=== PATIENT | female | born 1965 | race Caucasian/White ===

== ENCOUNTER → 2016-08-15 | Outpatient (CLI) | payer OTHER ==
[~2016-08-15] MED LIST: /ADVA50050 INH; /MOXI40TA PO; ADV500INH INH; ALBUPOW9 INH; ALBUTEROL; ATROVENT; ERYT250C11 PO; MUCI600T34 PO; NEBULIZER MACHINE; OMEP40CA2 PO; PRED20TA PO; PREDPOW10; SPIRIVA; XANA0.25 PO; [UNRECOGNIZED DRUG - OTHER]
--- NOTE | 2016-08-16 02:50 | REP ---
Clinical: History of COPD with acute exacerbation. Technique: PA and lateral. Comparison: 08/26/2014. Findings: Mediastinum and cardiac silhouette are normal. Lung child demonstrate chronic-appearing interstitial changes consistent with history. No acute consolidation, effusion, or pneumothorax identified. Skeletal structures intact. Impression: Chronic changes related to COPD. No obvious acute mediastinal or cardiopulmonary process identified. Signed by Malachi Rodriguez MD 08/16/2016 02:41 A
== END ==
LOC: M SMT 13:14
PROVIDERS: ATTEND Nurse Practitioner Adult Health
DX: J44.1 Chronic obstructive pulmonary disease with (acute) exacerbation (principal)

== ENCOUNTER → 2016-08-29 | Outpatient (CLI) | payer OTHER ==
[2016-08-29 15:24] LABS: BASO % 0.4 % (0.0-1.0); EOS # 0.1 K/mm3 (0.0-0.50); EOS % 0.6 % (0.0-3.0); LARGE UNSTAINED CELL # 0.2 K/mm3 (0.0-0.4); LARGE UNSTAINED CELL % 2.4 % (0.0-4.0); LYMPH # 2.1 K/mm3 (1.5-4.5); LYMPH % 20.5 % (24.0-44.0); MEAN CORPUSCULAR HEMOGLOBIN 32.2 pg (27.0-33.0); MEAN CORPUSCULAR HGB CONC 33.9 g/dl (32.0-36.5); MEAN CORPUSCULAR VOLUME 94.9 fl (80.0-96.0); MONO # 0.7 K/mm3 (0.0-0.8); MONO % 7.7 % (0.0-5.0); NEUTROPHILS # 6.3 K/mm3 (1.8-7.7); NEUTROPHILS % 68.4 % (36.0-66.0); PLATELET COUNT, AUTOMATED 256 k/mm3 (150-450); RED CELL DISTRIBUTION WIDTH 12.6 % (11.5-14.5); WHITE BLOOD COUNT 9.2 K/mm3 (4.0-10.0)
[2016-08-29 15:31] LABS: ALBUMIN 4.2 GM/DL (3.2-5.2); ALKALINE PHOSPHATASE 114 U/L (45-117); ALT/SGPT 180 U/L (12-78); ANION GAP 7 MEQ/L (8-16); AST/SGOT 90 U/L (15-37); BILIRUBIN,TOTAL 0.5 MG/DL (0.2-1.0); BLOOD UREA NITROGEN 10 MG/DL (7-18); CALCIUM LEVEL 9.5 MG/DL (8.5-10.1); CARBON DIOXIDE LEVEL 30 MEQ/L (21-32); CHLORIDE LEVEL 101 MEQ/L (98-107); CREATININE FOR GFR 0.91 MG/DL (0.55-1.02); GLOMERULAR FILTRATION RATE > 60.0 (>58); GLUCOSE, FASTING 112 MG/DL (70-105); POTASSIUM SERUM 4.8 MEQ/L (3.5-5.1); SODIUM LEVEL 138 MEQ/L (136-145); TOTAL PROTEIN 7.7 GM/DL (6.4-8.2)
== END ==
LOC: M LAB 14:39
PROVIDERS: ATTEND Physician Assistant
DX: I10 Essential (primary) hypertension (principal)

== ENCOUNTER → 2017-12-03 | Outpatient (CLI) | payer OTHER | LOC: M SMT 15:20 | DX: J44.9 Chronic obstructive pulmonary disease, unspecified (principal) ==

== ENCOUNTER 2018-09-14 21:11 | Inpatient (IN) | payer OTHER ==
[~2018-09-14] VITALS: Ht 154.9 cm; Wt 70.6 kg
[2018-09-14] MEDS ORDERED: ALBU83IN PO (21:45)
[2018-09-14] MEDS ORDERED: LEVO500T3 PO (21:45)
[2018-09-14] MEDS ORDERED: PRED10TA2 PO (21:45)
[2018-09-14] MEDS ORDERED: ALBUTEROL SULFATE 2.5 MG/0.5 ML INH NEB SOLN INH ONE (22:15)
[2018-09-14] MEDS ORDERED: IPRATROPIUM 0.5MG/ALBUTEROL 2.5MG INH SOL UD 3ML (DUONEB)(J7620) NEB ONE (22:15)
[2018-09-14] MEDS ORDERED: dexameTHASONE 20 MG/5 ML VIAL (J1100) IV ONE (22:15)
[2018-09-14 22:28] LABS: ABG BASE EXCESS -2.3 (-2.0-2.0); ABG HCO3 21.1 MEQ/L (22.0-26.0); ABG O2 SATURATION 98.4 % (95.0-99.0); ABG PARTIAL PRESSURE CO2 33.4 mmHg (35.0-45.0); ABG PARTIAL PRESSURE O2 117.6 mmHg (75.0-100.0); ABG STANDARD HCO3 22.6 MEQ/L (22.0-26.0); ABG TOTAL CO2 22.2 MEQ/L (22.0-29.0); ABG pH (ARTERIAL) 7.419 UNITS (7.350-7.450)
[2018-09-14 22:41] LABS: BASO % 0.4 % (0.0-1.0); HEMATOCRIT 48.7 % (36.0-47.0); HEMOGLOBIN 16.7 g/dl (12.0-15.5); LYMPH # 1.2 10^3/uL (1.5-4.5); LYMPH % 13.8 % (24.0-44.0); MEAN CORPUSCULAR HEMOGLOBIN 32.1 pg (27.0-33.0); MEAN CORPUSCULAR HGB CONC 34.3 g/dl (32.0-36.5); MEAN CORPUSCULAR VOLUME 93.5 fl (80.0-96.0); MONO # 0.8 10^3/uL (0.0-0.8); MONO % 9.2 % (0.0-5.0); NEUTROPHILS # 6.4 10^3/uL (1.8-7.7); NEUTROPHILS % 75.9 % (36.0-66.0); PLATELET COUNT, AUTOMATED 251 10^3/uL (150-450); RED BLOOD COUNT 5.21 10^6/uL (4.00-5.40); WHITE BLOOD COUNT 8.5 10^3/uL (4.0-10.0)
[2018-09-14 23:13] LABS: ALBUMIN 3.8 GM/DL (3.2-5.2); ALT/SGPT 172 U/L (12-78); BILIRUBIN,DIRECT < 0.1 MG/DL (0.0-0.2); BILIRUBIN,TOTAL 0.3 MG/DL (0.2-1.0); BLOOD UREA NITROGEN 7 MG/DL (7-18); CALCIUM LEVEL 8.9 MG/DL (8.5-10.1); CARBON DIOXIDE LEVEL 23 MEQ/L (21-32); CHLORIDE LEVEL 102 MEQ/L (98-107); CPK CREATINE PHOSPHOKINASE 128 U/L (26-192); CREATININE FOR GFR 0.65 MG/DL (0.55-1.30); GLOMERULAR FILTRATION RATE > 60.0 (>51); GLUCOSE, FASTING 139 MG/DL (70-100); MB/CK RELATIVE INDEX 1.25 (< OR =4); POTASSIUM SERUM 4.6 MEQ/L (3.5-5.1); SODIUM LEVEL 137 MEQ/L (136-145); TOTAL PROTEIN 8.1 GM/DL (6.4-8.2); TROPONIN I < 0.02 NG/ML (< 0.10)
[2018-09-14] MEDS ORDERED: ACETAMINOPHEN TAB 650MG DOSE (2X325MG) PO ONE (23:15)
[2018-09-14] MEDS ORDERED: ISOVUE-370 76% 100ML VIAL (Q9967) As Ordered ONE (23:15)
--- NOTE | 2018-09-15 00:10 | REPVR ---
EXAM: CT Angiography Chest With Contrast EXAM DATE/TIME: 09/14/2018 11:38 PM CLINICAL HISTORY: 52 years old, female; Signs and symptoms; Shortness of breath TECHNIQUE: Axial computed tomographic angiography images of the chest with intravenous contrast using CT angiography protocol. All CT scans at this facility use at least one of these dose optimization techniques: automated exposure control; mA and/or kV adjustment per patient size (includes targeted exams where dose is matched to clinical indication); or iterative reconstruction. Coronal and sagittal reformatted images were created and reviewed. MIP reconstructed images were created and reviewed. CONTRAST: Contrast Material: 75 ml of isovue 370; Contrast Route: iv COMPARISON: CT ANGIO CHEST 07/07/2012 4:46 PM FINDINGS: Pulmonary arteries: The main pulmonary artery measures 25 mm. No pulmonary embolism is identified. Aorta: The ascending thoracic aorta measures 30 mm. Lungs: Normal. No consolidation. No masses. Pleural space: Normal. No pneumothorax. No pleural effusion. Heart: Normal. No cardiomegaly. No pericardial effusion. Liver: There is fatty infiltration of the liver. Spleen: Rounded focal lesions of the spleen which are nonspecific measuring up to 4.2 cm. Lymph nodes: Unremarkable. No enlarged lymph nodes. Bones/joints: Unremarkable. No acute fracture. Soft tissues: Slight interstitial prominence with minimal bullous change and minimal scattered fibro-atelectatic change. Other findings: Calcified granulomata. IMPRESSION: 1. Slight interstitial prominence with minimal bullous change and minimal scattered fibro-atelectatic change. 2. Fatty infiltration of the liver. 3. Focal lesions of the spleen which are nonspecific. 4. Minimal evidence of old granulomatous disease. 5. Otherwise negative CTA chest. No pulmonary embolism is identified. Electronically signed by: Omer Whaley On 09/15/2018 00:10:37 AM
[2018-09-15] MEDS ORDERED: OSELTAMIVIR PHOSPHATE 75 MG CAP (TAMIFLU) PO ONE (00:15)
[2018-09-15] MEDS ORDERED: PROAAER10 INH (00:36)
[2018-09-15] MEDS ORDERED: MUCI600T31 PO (00:36)
[2018-09-15] MEDS ORDERED: ADV500INH INH (00:36)
[2018-09-15] MEDS ORDERED: SPIR1CAP INH (00:36)
[2018-09-15] MEDS ORDERED: METAL LOCK LOOP XX ONE (00:45)
[2018-09-15] MEDS: ADVAIR HFA 230/21MCG INHALER INH SCH ×3 (00:59→20:04)
[2018-09-15] MEDS ORDERED: ALBUTEROL SULFATE 2.5 MG/0.5 ML INH NEB SOLN NEB PRN (01:00)
[2018-09-15 01:45] VITALS: BP 166/98
[2018-09-15] MEDS: IPRATROPIUM 0.5MG/ALBUTEROL 2.5MG INH SOL UD 3ML (DUONEB)(J7620) NEB SCH ×4 (02:49→15:41)
[2018-09-15] MEDS: HEPARIN SOD (PORCINE) 5000 UNITS/ML VIAL SC SCH ×3 (05:53→20:24)
[2018-09-15 06:00] VITALS: BP 160/95
--- NOTE | 2018-09-15 08:15 | REP ---
Clinical: Cough and dyspnea . Comparison: 12/03/2017 . Findings: The mediastinum and cardiac silhouette are stable and within normal limits for portable technique. The lung child are clear without acute consolidation, effusion, or pneumothorax. Skeletal structures are intact. Impression: No acute cardiopulmonary process appreciated. Electronically Signed by Malachi Rodriguez MD 09/15/2018 08:06 A
--- NOTE | 2018-09-15 09:31 | HPE ---
DATE OF ADMISSION: 09/15/2018 CHIEF COMPLAINT: Shortness of breath and chest tightness and cough for the last 6-8 weeks. HISTORY OF PRESENT ILLNESS: The patient is a 52-year-old female with a significant past medical history of advanced COPD. Patient of Dr. Renae is on a lung transplant list. She presents to the emergency room with 6 days of cough, chest tightness, shortness of breath and not improved with her nebulizer. She is on a course of Levaquin and prednisone given by her PCP with limited improvement. She denies any fever or chills. She denies any abdominal pain, constipation, diarrhea or urinary symptoms. In the emergency room she is noted to flu positive. PAST MEDICAL HISTORY: See history of present illness. PAST SURGICAL HISTORY: . HOME MEDICATIONS: Spiriva, duonebs and albuterol. She is currently on Levaquin and prednisone as well as Advair, changed to penicillin. SOCIAL HISTORY: Former smoker and denies alcohol or illicit drug use. FAMILY HISTORY: Noncontributory. REVIEW OF SYSTEMS: The 12 point review of system was completed, all were negative except those in the history of present illness. VITALS ON ADMISSION: Temperature 97, pulse 109, respirations 30, satting 92% on room air, blood pressure 174/89. PHYSICAL EXAMINATION: GENERAL: She is well nourished in no apparent distress. Head is normocephalic atraumatic. EYES: Extraocular movements are intact. Pupils are equal, round and reactive to light. NECK: Supple and no jugular venous pulse. LUNGS: Diminished breath sounds, scattered wheezes. CARDIOVASCULAR: Regular rate and rhythm. Normal S1, S2 no murmurs, gallops, or rubs. ABDOMEN: Soft and nontender, nondistended and positive bowel sounds. No rebound or guarding. EXTREMITIES: No pitting edema or calf tenderness. SKIN: Intact and no rashes, lesions or breakdowns. NEUROLOGIC: Alert and oriented times three and no focal deficit. LABS AND IMAGING IN THE ER: White count of 8, hemoglobin and hematocrit 16/48, platelets 151, blood gas 7.4, 33 117 22. Chemistry is unremarkable except an AST is 137, ALT 172, alkaline phos 141, rapid flu is positive. CT angio shows bullous emphysema and fatty infiltration of the liver. ASSESSMENT AND PLAN: Acute on chronic hypoxic respiratory failure secondary to COPD exacerbation and secondary to influenza. DuoNebs standing, Albuterol as needed. Continue Advair, oxygen as needed and Solu-Medrol 40 every 12, fingers sticks while on high dose steroids. Tamiflu. Continue her dose of Levaquin for 3 more days. Elevated LFT's likely secondary to fatty liver. We will trend liver function test. We will send hepatitis panel.
[2018-09-15] MEDS: guaiFENesin ER 600 MG TAB PO SCH ×2 (10:10→20:22)
[2018-09-15] MEDS: methylPREDNISolone INJ 40 MG/1 ML VIAL (J2920) IV SCH ×2 (10:10→20:22)
[2018-09-15] MEDS: OSELTAMIVIR PHOSPHATE 75 MG CAP (TAMIFLU) PO SCH ×2 (10:10→20:24)
[2018-09-15 14:00] VITALS: BP 158/94
[2018-09-15] MEDS: HumaLOG INSULIN (NovoLOG) PER UNIT SC SCH ×2 (18:41→20:24)
[2018-09-15] MEDS ORDERED: DEXTROSE 50% 50 ML SYRINGE IV PRN (18:45)
[2018-09-15] MEDS ORDERED: GLUCOSE 4 GM CHEW TABLET PO PRN (18:45)
[2018-09-15] MEDS ORDERED: GLUCAGON FOR INJ 1 MG VIAL (J1610) SC PRN (18:45)
--- NOTE | 2018-09-15 19:55 | IPN ---
DATE: 09/15/2018 SUBJECTIVE: The patient is seen and examined in the room today. The patient still complains of significant difficulty breathing. The patient requires oxygen support. The patient complained of increased anxiety. The patient also complained of significant cough. The patient admitted to recent sick contact; her had recent upper respiratory infection. OBJECTIVE: VITAL SIGNS: Temperature 96.1, pulse 87, respirations 22, blood pressure 160/95, pulse oximetry 94% with 3 liters nasal cannula. GENERAL: No acute distress. Alert. Frequent cough. HEENT: Normocephalic, atraumatic. Extraocular muscles grossly intact. CARDIOVASCULAR: Positive S1, S2. Regular rate. LUNGS: Decreased breath sounds but I could not appreciate significant wheezes during the encounter. No crackles appreciated. ABDOMEN: Soft, nontender, nondistended. Bowel sounds present. EXTREMITIES: No edema. LABORATORY DATA: WBC 8.5, hemoglobin 16.7, hematocrit 48.7, platelet count is 251. Sodium is 137, potassium 4.6, chloride 102, carbon dioxide 23, BUN 7, creatinine 0.64, GFR greater than 60, fasting glucose 139, calcium 8.9, total bilirubin 0.2, direct bilirubin less than 0.1, AST 137, ALT is 172, alkaline phosphatase 141, TSH 6.43. ASSESSMENT AND PLAN: 1. Influenza A viral infection. The patient was started on Tamiflu. She did have a recent sick contact. 2. Chronic obstructive pulmonary disease (COPD) exacerbation, most likely secondary to influenza. At baseline, the patient does not require any oxygen. Currently, the patient is on IV steroids, nebulizer treatments, and Levaquin. 3. Transaminitis. Hepatitis panel is pending. Follow with upper quadrant ultrasound. 4. Elevated TSH. Follow Free T4. The patient does not have a known history of thyroid disease. 5. Deep vein thrombosis (DVT) prophylaxis. On heparin.
--- NOTE | 2018-09-15 20:03 | ECGEPIP ---
Stationary ECG Study [facility] - ED Test Date: 2018-09-14 Pat Name: MUSHTAQ NICK Department: Room: [place] [address] Gender: F Clinical Nursing Coordinator: ROXANNA : 1965 Requested By: LEE Cruz Order Number: [id number] Reading MD: Fabienne Greenfield Measurements Intervals [place] Rate: 84 P: 77 MS: 129 QRS: -69 QRSD: 81 T: 52 QT: 332 QTc: 393 Interpretive Statements SINUS RHYTHM POSSIBLE LEFT ATRIAL ENLARGEMENT MARKED LEFT AXIS DEVIATION POSSIBLE RIGHT VENTRICULAR CONDUCTION DELAY INFERIOR MYOCARDIAL INFARCTION, PROBABLY OLD NO PRIOR FOR COMPARISON Electronically Signed On 09-15-2018 20:03:47 EST by Fabienne Greenfield
[2018-09-15] MEDS: LevoFLOXacin 500 MG TABLET PO SCH (20:22)
[2018-09-15 22:00] VITALS: BP 180/100
[2018-09-16] MEDS ORDERED: IPRATROPIUM 0.5MG/ALBUTEROL 2.5MG INH SOL UD 3ML (DUONEB)(J7620) NEB SCH
[2018-09-16] MEDS: LEVALBUTEROL 1.25 MG/0.5 ML CONCENTRATE NEB INH SCH ×3 (00:03→16:00)
[2018-09-16] MEDS: diphenhydrAMINE 25 MG CAP PO PRN ×2 (00:03→21:23)
[2018-09-16] MEDS: HEPARIN SOD (PORCINE) 5000 UNITS/ML VIAL SC SCH ×3 (05:33→21:24)
[2018-09-16 06:00] VITALS: BP 180/110
[2018-09-16 06:45] LABS: HEMATOCRIT 45.8 % (36.0-47.0); HEMOGLOBIN 15.9 g/dl (12.0-15.5); MEAN CORPUSCULAR HEMOGLOBIN 32.1 pg (27.0-33.0); MEAN CORPUSCULAR HGB CONC 34.7 g/dl (32.0-36.5); MEAN CORPUSCULAR VOLUME 92.5 fl (80.0-96.0); PLATELET COUNT, AUTOMATED 259 10^3/uL (150-450); RED BLOOD COUNT 4.95 10^6/uL (4.00-5.40); WHITE BLOOD COUNT 20.1 10^3/uL (4.0-10.0)
[2018-09-16 07:04] LABS: ALBUMIN 3.7 GM/DL (3.2-5.2); ALT/SGPT 197 U/L (12-78); BILIRUBIN,TOTAL 0.4 MG/DL (0.2-1.0); BLOOD UREA NITROGEN 12 MG/DL (7-18); CALCIUM LEVEL 9.1 MG/DL (8.5-10.1); CARBON DIOXIDE LEVEL 28 MEQ/L (21-32); CHLORIDE LEVEL 95 MEQ/L (98-107); CREATININE FOR GFR 0.76 MG/DL (0.55-1.30); GLOMERULAR FILTRATION RATE > 60.0 (>51); GLUCOSE, FASTING 145 MG/DL (70-100); POTASSIUM SERUM 4.8 MEQ/L (3.5-5.1); SODIUM LEVEL 134 MEQ/L (136-145); TOTAL PROTEIN 7.5 GM/DL (6.4-8.2)
[2018-09-16 07:13] LABS: HEMOGLOBIN A1c 6.2 %
[2018-09-16] MEDS: ADVAIR HFA 230/21MCG INHALER INH SCH ×2 (08:04→20:44)
[2018-09-16] MEDS: OSELTAMIVIR PHOSPHATE 75 MG CAP (TAMIFLU) PO SCH ×2 (09:00→21:23)
[2018-09-16] MEDS: guaiFENesin ER 600 MG TAB PO SCH ×2 (10:09→21:23)
[2018-09-16] MEDS: HumaLOG INSULIN (NovoLOG) PER UNIT SC SCH ×4 (10:10→21:24)
[2018-09-16] MEDS: methylPREDNISolone INJ 125 MG/2 ML VIAL (J2930) IV SCH ×2 (10:11→17:12)
[2018-09-16] MEDS: LEVALBUTEROL 1.25 MG/0.5 ML CONCENTRATE NEB INH PRN ×3 (10:16→20:45)
[2018-09-16 11:07] LABS: HEPATITIS A ANTIBODY IGM NEGATIVE (NEGATIVE); HEPATITIS B CORE ANTIBODY IGM NEGATIVE (NEGATIVE); HEPATITIS B SURFACE ANTIGEN NEGATIVE (NEGATIVE); HEPATITIS C VIRUS ABY INDEX < 0.0 INDEX (<0.8)
[2018-09-16] MEDS ORDERED: diphenhydrAMINE 25 MG CAP PO ONE (13:00)
[2018-09-16 14:00] VITALS: BP 174/80
--- NOTE | 2018-09-16 14:53 | REP ---
RIGHT UPPER QUADRANT SONOGRAPHY: HISTORY: Increased liver function studies. Right upper quadrant discomfort. FINDINGS: Scanning through the right upper quadrant of the abdomen demonstrates a normal sized thin-walled gallbladder without evidence of stone or polyp. Common bile duct is normal measuring 0.3 cm in greatest diameter. Mildly enlarged liver is seen with a craniocaudal imaging span of 19.5 cm in the midclavicular line. There is evidence of fatty infiltration of the liver but no focal liver mass lesion is observed. Limited views of the pancreas show no abnormality. The right kidney shows no evidence of hydronephrosis. There is mild cortical atrophy. Right renal dimensions are 9.9 x 4.2 x 2.7 cm. There is no evidence of ascites. IMPRESSION: Fatty infiltration of the liver. Mild hepatomegaly. Otherwise negative right upper quadrant sonography. Electronically Signed by Pedro Rangel MD 09/16/2018 03:24 P
--- NOTE | 2018-09-16 17:07 | IPNPDOC ---
Text Note Date of Service The patient was seen on 09/16/18. NOTE SUBJECTIVE: The patient is seen and examined in the room today. Patient feels her breathing may be improving. Patient continues having significant cough. Patient states she got some sleep yesterday with medication. She still experiences anxiety. OBJECTIVE: VITAL SIGNS: Listed below. GENERAL: No acute distress. Alert. Frequent cough. HEENT: Normocephalic, atraumatic. Extraocular muscles grossly intact. CARDIOVASCULAR: Positive S1, S2. Regular rate. LUNGS: Decreased breath sounds. No significant wheeze. No crackles. ABDOMEN: Soft, nontender, nondistended. Bowel sounds present. EXTREMITIES: No edema. LABORATORY DATA: Listed below ASSESSMENT AND PLAN: #. Chronic obstructive pulmonary disease (COPD) exacerbation, - Secondary to influenza. At baseline, the patient does not require any oxygen. On IV steroids, nebulizer treatments, and Levaquin. #. Influenza A viral infection. - On Tamiflu. She did have a recent sick contact. #. Transaminitis. - Medication reviewed. Hepatitis panel is negative. RUQ ultrasound demonstrates fatty liver. - AST/ALT was elevated in 2017 per record. Will obtain outpatient record. #. Deep vein thrombosis (DVT) prophylaxis. On heparin. VS,Fishbone, I+O VS, Fishbone, I+O Laboratory Tests 09/16/18 06:19 Red Blood Count 4.95, Mean Corpuscular Volume 92.5, Mean Corpuscular Hemoglobin 32.1, Mean Corpuscular Hemoglobin Concent 34.7, Red Cell Distribution Width 12 .6, Calcium Level 9.1, Aspartate Amino Transf (AST/SGOT) 135 H, Alanine Aminotransferase (ALT/SGPT) 197 H, Alkaline Phosphatase 137 H, Total Bilirubin 0.4, Total Protein 7.5, Albumin 3.7 Vital Signs Date Time Temp Pulse Resp B/P (MAP) Pulse Ox O2 Delivery O2 Flow Rate FiO2 09/16/18 14:00 97.6 97 20 174/80 (111) 95 4.0 09/15/18 01:26 Nasal Cannula 09/14/18 23:51 93 I&O- Last 24 Hours up to 6 AM 09/16/18 06:00 Intake Total 1200 ml Balance 1200 ml RONEN IBRAHIM DO Sep 16, 2018 17:07
[2018-09-16] MEDS: amLODIPine 5 MG TAB PO SCH (17:17)
[2018-09-16] MEDS: LevoFLOXacin 500 MG TABLET PO SCH (21:23)
[2018-09-16 22:00] VITALS: BP 138/72
[2018-09-17] MEDS: methylPREDNISolone INJ 125 MG/2 ML VIAL (J2930) IV SCH ×3 (01:20→17:09)
[2018-09-17] MEDS: LEVALBUTEROL 1.25 MG/0.5 ML CONCENTRATE NEB INH SCH ×6 (01:35→20:20)
[2018-09-17] MEDS: HEPARIN SOD (PORCINE) 5000 UNITS/ML VIAL SC SCH ×3 (05:09→21:19)
[2018-09-17 06:00] VITALS: BP 152/92
[2018-09-17 06:07] LABS: HEMATOCRIT 44.8 % (36.0-47.0); HEMOGLOBIN 15.4 g/dl (12.0-15.5); MEAN CORPUSCULAR HEMOGLOBIN 32.6 pg (27.0-33.0); MEAN CORPUSCULAR HGB CONC 34.4 g/dl (32.0-36.5); MEAN CORPUSCULAR VOLUME 94.7 fl (80.0-96.0); PLATELET COUNT, AUTOMATED 233 10^3/uL (150-450); RED BLOOD COUNT 4.73 10^6/uL (4.00-5.40); WHITE BLOOD COUNT 17.3 10^3/uL (4.0-10.0)
[2018-09-17 06:49] LABS: ALBUMIN 3.7 GM/DL (3.2-5.2); ALT/SGPT 201 U/L (12-78); BILIRUBIN,TOTAL 0.4 MG/DL (0.2-1.0); BLOOD UREA NITROGEN 13 MG/DL (7-18); CALCIUM LEVEL 8.5 MG/DL (8.5-10.1); CARBON DIOXIDE LEVEL 30 MEQ/L (21-32); CHLORIDE LEVEL 95 MEQ/L (98-107); CREATININE FOR GFR 0.92 MG/DL (0.55-1.30); FERRITIN 518 NG/ML (8-252); GLOMERULAR FILTRATION RATE > 60.0 (>51); GLUCOSE, FASTING 229 MG/DL (70-100); IRON (FE) 165 UG/DL (50-170); POTASSIUM SERUM 4.2 MEQ/L (3.5-5.1); SODIUM LEVEL 132 MEQ/L (136-145); TOTAL IRON BINDING CAPACITY 300 UG/DL (250-450); TOTAL PROTEIN 7.6 GM/DL (6.4-8.2)
[2018-09-17] MEDS: ADVAIR HFA 230/21MCG INHALER INH SCH ×3 (07:57→13:40)
[2018-09-17] MEDS: TIOTROPIUM INHALER/CAPSULE (SPIRIVA) INH SCH (08:00)
[2018-09-17] MEDS: OSELTAMIVIR PHOSPHATE 75 MG CAP (TAMIFLU) PO SCH ×2 (09:00→20:14)
[2018-09-17] MEDS: guaiFENesin ER 600 MG TAB PO SCH ×2 (09:07→20:14)
[2018-09-17] MEDS: amLODIPine 5 MG TAB PO SCH (09:08)
[2018-09-17] MEDS: HumaLOG INSULIN (NovoLOG) PER UNIT SC SCH ×4 (09:10→21:19)
[2018-09-17] MEDS: LEVALBUTEROL 1.25 MG/0.5 ML CONCENTRATE NEB INH PRN ×4 (13:41→22:26)
[2018-09-17 14:00] VITALS: BP 152/88
--- NOTE | 2018-09-17 14:13 | IPNPDOC ---
Subjective Date Seen The patient was seen on 09/17/18. Subjective Chief Complaint/HPI Patient seen and examined at the bedside. No acute overnight events noted. The patient continues to show slow improvement of her respiratory status. Objective Physical Examination General Exam: Positive: Alert, Cooperative, Mild Distress (2/2 respiratory status) ENT Exam: Positive: Atraumatic, Mucous membr. moist/pink Chest Exam: Positive: Diminished; Negative: Rales, Wheezing Heart Exam: Positive: Rate Normal, Normal S1, Normal S2 Abdomen Exam: Positive: Soft; Negative: Tenderness Extremity Exam: Negative: Tenderness, Swelling Psych Exam: Positive: Oriented x 3 Assessment /Plan Plan/VTE VTE Prophylaxis Ordered?: Yes Plan Chronic Obstructive Pulmonary Disease (COPD) Exacerbation 2/2 Influenza Cont Tamiflu Cont IV steroids, serial nebulizer treatments, Spiriva/Advair, and Levaquin. We will cont to monitor the patient's respiratory status Hypoxia 2/2 Above We will cont to down-titrate supplemental oxygen as tolerated Transaminitis possibly 2/2 Fatty Liver Hepatitis panel is negative RUQ ultrasound demonstrates fatty liver. AST/ALT has been elevated since 2017 per records. Follow up as outpatient Hypertension Cont Norvasc Deep vein thrombosis (DVT) prophylaxis Heparin SC VS, I&O, 24H, Fishbone Vital Signs/I&O Vital Signs Date Time Temp Pulse Resp B/P (MAP) Pulse Ox O2 Delivery O2 Flow Rate FiO2 09/17/18 10:00 2.0 09/17/18 09:08 106 158/94 09/17/18 06:00 97.8 20 95 09/15/18 01:26 Nasal Cannula 09/14/18 23:51 93 I&O- Last 24 Hours up to 6 AM 09/17/18 06:00 Intake Total 1320 ml Output Total 0 ml Balance 1320 ml Laboratory Data 24H LABS Laboratory Tests 2 09/16/18 16:21: Bedside Glucose (Misc Panel) 298H 09/16/18 21:02: Bedside Glucose (Misc Panel) 276H 09/17/18 05:49: Nucleated Red Blood Cells % (auto) 0.0, Anion Gap 7L, Glomerular Filtration Rate > 60.0, Blood Urea Nitrogen 13, Creatinine 0.92, Sodium Level 132L, Potassium Level 4.2, Chloride Level 95L, Carbon Dioxide Level 30, Calcium Level 8.5, Aspartate Amino Transf (AST/SGOT) 104H, Alanine Aminotransferase (ALT/SGPT) 201H, Alkaline Phosphatase 141H, Total Bilirubin 0.4, Total Protein 7.6, Albumin 3.7, Iron Level 165, Total Iron Binding Capacity 300, Transferrin % Saturation 5 5.0H, Ferritin 518H, Albumin/Globulin Ratio 0.95L 09/17/18 13:03: Bedside Glucose (Misc Panel) 198H CBC/BMP Laboratory Tests 09/17/18 05:49 Red Blood Count 4.73, Mean Corpuscular Volume 94.7, Mean Corpuscular Hemoglobin 32.6, Mean Corpuscular Hemoglobin Concent 34.4, Red Cell Distribution Width 12.4, Calcium Level 8.5, Aspartate Amino Transf (AST/SGOT) 104 H, Alanine Aminotransferase (ALT/SGPT) 201 H, Alkaline Phosphatase 141 H, Total Bilirubin 0.4, Total Protein 7.6, Albumin 3.7 Microbiology Microbiology 09/14/18 Blood Culture - Preliminary, Resulted No Growth after 48 hours. All Specime... 09/14/18 Blood Culture - Preliminary, Resulted No Growth after 48 hours. All Specime... 09/14/18 Respiratory Virus Panel (PCR) ([facility]) - Final, Complete Influenza A H1-2009 09/14/18 Gram Stain - Final, Complete 09/14/18 Sputum Culture - Final, Complete DAVID ODONNELL MD Sep 17, 2018 14:13
[2018-09-17] MEDS: ALPRAZolam 0.25 MG TAB PO PRN (15:17)
[2018-09-17] MEDS: LevoFLOXacin 500 MG TABLET PO SCH (20:14)
[2018-09-17] MEDS: diphenhydrAMINE 25 MG CAP PO PRN (21:19)
[2018-09-17 22:00] VITALS: BP 158/82
[2018-09-18] MEDS: methylPREDNISolone INJ 125 MG/2 ML VIAL (J2930) IV SCH (01:14)
[2018-09-18] MEDS: LEVALBUTEROL 1.25 MG/0.5 ML CONCENTRATE NEB INH SCH ×4 (02:02→20:00)
[2018-09-18] MEDS: ALPRAZolam 0.25 MG TAB PO PRN ×2 (03:05→14:35)
[2018-09-18 06:00] VITALS: BP 164/89
[2018-09-18 06:33] LABS: HEMATOCRIT 44.2 % (36.0-47.0); HEMOGLOBIN 15.3 g/dl (12.0-15.5); MEAN CORPUSCULAR HEMOGLOBIN 32.3 pg (27.0-33.0); MEAN CORPUSCULAR HGB CONC 34.6 g/dl (32.0-36.5); MEAN CORPUSCULAR VOLUME 93.4 fl (80.0-96.0); PLATELET COUNT, AUTOMATED 287 10^3/uL (150-450); RED BLOOD COUNT 4.73 10^6/uL (4.00-5.40); WHITE BLOOD COUNT 18.9 10^3/uL (4.0-10.0)
[2018-09-18] MEDS: HEPARIN SOD (PORCINE) 5000 UNITS/ML VIAL SC SCH ×3 (06:40→21:32)
[2018-09-18 07:03] LABS: ALBUMIN 3.5 GM/DL (3.2-5.2); ALT/SGPT 240 U/L (12-78); BILIRUBIN,TOTAL 0.4 MG/DL (0.2-1.0); BLOOD UREA NITROGEN 13 MG/DL (7-18); CALCIUM LEVEL 8.2 MG/DL (8.5-10.1); CARBON DIOXIDE LEVEL 27 MEQ/L (21-32); CHLORIDE LEVEL 95 MEQ/L (98-107); CREATININE FOR GFR 0.93 MG/DL (0.55-1.30); GLOMERULAR FILTRATION RATE > 60.0 (>51); GLUCOSE, FASTING 234 MG/DL (70-100); POTASSIUM SERUM 3.9 MEQ/L (3.5-5.1); SODIUM LEVEL 133 MEQ/L (136-145); TOTAL PROTEIN 7.5 GM/DL (6.4-8.2)
[2018-09-18] MEDS: TIOTROPIUM INHALER/CAPSULE (SPIRIVA) INH SCH (08:03)
[2018-09-18] MEDS: HumaLOG INSULIN (NovoLOG) PER UNIT SC SCH ×4 (08:32→21:31)
[2018-09-18] MEDS: amLODIPine 5 MG TAB PO SCH (08:33)
[2018-09-18] MEDS: OSELTAMIVIR PHOSPHATE 75 MG CAP (TAMIFLU) PO SCH ×2 (08:33→20:04)
[2018-09-18] MEDS: guaiFENesin ER 600 MG TAB PO SCH ×2 (08:33→20:04)
--- NOTE | 2018-09-18 11:55 | IPNPDOC ---
Subjective Date Seen The patient was seen on 09/18/18. Subjective Chief Complaint/HPI Patient seen and examined at bedside. She states that her respiratory status is slowly improving. PT ordered for functional optimization. Objective Physical Examination General Exam: Positive: Alert, Cooperative, No Acute Distress ENT Exam: Positive: Atraumatic, Mucous membr. moist/pink Chest Exam: Positive: Diminished; Negative: Rales, Wheezing Heart Exam: Positive: Rate Normal, Normal S1, Normal S2 Abdomen Exam: Positive: Soft; Negative: Tenderness Extremity Exam: Negative: Tenderness, Swelling Psych Exam: Positive: Oriented x 3 Assessment /Plan Plan/VTE VTE Prophylaxis Ordered?: Yes Plan Chronic Obstructive Pulmonary Disease (COPD) Exacerbation 2/2 Influenza Cont Tamiflu Cont IV steroids, serial nebulizer treatments, Spiriva/Advair, and s/p Levaquin. We will cont to monitor the patient's respiratory status Hypoxia 2/2 Above We will cont to down-titrate supplemental oxygen as tolerated Transaminitis possibly 2/2 Fatty Liver Hepatitis panel is negative RUQ ultrasound demonstrates fatty liver. AST/ALT has been elevated since 2017 per records. Follow up as outpatient Hypertension Cont Norvasc Deep vein thrombosis (DVT) prophylaxis Heparin SC Dispo--pending clinical improvement. PT on board for functional optimization. VS, I&O, 24H, Fishbone Vital Signs/I&O Vital Signs Date Time Temp Pulse Resp B/P (MAP) Pulse Ox O2 Delivery O2 Flow Rate FiO2 09/18/18 09:00 2.0 09/18/18 06:00 98.2 100 21 164/89 (114) 96 09/15/18 01:26 Nasal Cannula 09/14/18 23:51 93 I&O- Last 24 Hours up to 6 AM 09/18/18 06:00 Intake Total 2340 ml Output Total 0 ml Balance 2340 ml Laboratory Data 24H LABS Laboratory Tests 2 09/17/18 13:03: Bedside Glucose (Misc Panel) 198H 09/17/18 16:54: Bedside Glucose (Misc Panel) 264H 09/18/18 05:28: Nucleated Red Blood Cells % (auto) 0.0, Anion Gap 11, Glomerular Filtration Rate > 60.0, Blood Urea Nitrogen 13, Creatinine 0.93, Sodium Level 133L, Potassium Level 3.9, Chloride Level 95L, Carbon Dioxide Level 27, Calcium Level 8.2L, As partate Amino Transf (AST/SGOT) 124H, Alanine Aminotransferase (ALT/SGPT) 240H, Alkaline Phosphatase 156H, Total Bilirubin 0.4, Total Protein 7.5, Albumin 3.5, Albumin/Globulin Ratio 0.88L CBC/BMP Laboratory Tests 09/18/18 05:28 Red Blood Count 4.73, Mean Corpuscular Volume 93.4, Mean Corpuscular Hemoglobin 32.3, Mean Corpuscular Hemoglobin Concent 34.6, Red Cell Distribution Width 12.0, Calcium Level 8.2 L, Aspartate Amino Transf (AST/SGOT) 124 H, Alanine Aminotransferase (ALT/SGPT) 240 H, Alkaline Phosphatase 156 H, Total Bilirubin 0.4, Total Protein 7.5, Albumin 3.5 Microbiology Microbiology 09/14/18 Blood Culture - Preliminary, Resulted No Growth after 72 hours. All specime... 09/14/18 Blood Culture - Preliminary, Resulted No Growth after 72 hours. All specime... 09/14/18 Respiratory Virus Panel (PCR) ([facility]) - Final, Complete Influenza A H1-200809/14/18 Gram Stain - Final, Complete 09/14/18 Sputum Culture - Final, Complete DAVID ODONNELL MD Sep 18, 2018 11:55
[2018-09-18] MEDS: methylPREDNISolone INJ 40 MG/1 ML VIAL (J2920) IV SCH (12:55)
[2018-09-18 14:00] VITALS: BP 170/90
[2018-09-18] MEDS: LEVALBUTEROL 1.25 MG/0.5 ML CONCENTRATE NEB INH PRN ×2 (15:47→21:31)
[2018-09-18] MEDS: diphenhydrAMINE 25 MG CAP PO PRN (21:31)
[2018-09-18 22:00] VITALS: BP 172/110
[2018-09-18 23:30] VITALS: BP 170/88
[2018-09-19] MEDS: methylPREDNISolone INJ 40 MG/1 ML VIAL (J2920) IV SCH ×2 (00:31→13:09)
[2018-09-19] MEDS: LEVALBUTEROL 1.25 MG/0.5 ML CONCENTRATE NEB INH SCH ×4 (01:02→21:33)
[2018-09-19] MEDS: ALPRAZolam 0.25 MG TAB PO PRN ×2 (02:40→22:39)
[2018-09-19] MEDS: LEVALBUTEROL 1.25 MG/0.5 ML CONCENTRATE NEB INH PRN (02:41)
[2018-09-19] MEDS: HEPARIN SOD (PORCINE) 5000 UNITS/ML VIAL SC SCH (05:54)
[2018-09-19 06:00] VITALS: BP 156/96
[2018-09-19 07:10] LABS: HEMATOCRIT 43.3 % (36.0-47.0); HEMOGLOBIN 14.8 g/dl (12.0-15.5); MEAN CORPUSCULAR HEMOGLOBIN 32.4 pg (27.0-33.0); MEAN CORPUSCULAR HGB CONC 34.2 g/dl (32.0-36.5); MEAN CORPUSCULAR VOLUME 94.7 fl (80.0-96.0); PLATELET COUNT, AUTOMATED 236 10^3/uL (150-450); RED BLOOD COUNT 4.57 10^6/uL (4.00-5.40); WHITE BLOOD COUNT 14.8 10^3/uL (4.0-10.0)
[2018-09-19 07:35] LABS: ALBUMIN 3.1 GM/DL (3.2-5.2); ALT/SGPT 270 U/L (12-78); BILIRUBIN,TOTAL 0.4 MG/DL (0.2-1.0); BLOOD UREA NITROGEN 14 MG/DL (7-18); CALCIUM LEVEL 8.1 MG/DL (8.5-10.1); CARBON DIOXIDE LEVEL 31 MEQ/L (21-32); CHLORIDE LEVEL 96 MEQ/L (98-107); GLOMERULAR FILTRATION RATE > 60.0 (>51); GLUCOSE, FASTING 216 MG/DL (70-100); POTASSIUM SERUM 4.2 MEQ/L (3.5-5.1); SODIUM LEVEL 135 MEQ/L (136-145); TOTAL PROTEIN 6.4 GM/DL (6.4-8.2)
[2018-09-19] MEDS: OSELTAMIVIR PHOSPHATE 75 MG CAP (TAMIFLU) PO SCH ×2 (08:07→21:00)
[2018-09-19] MEDS: HumaLOG INSULIN (NovoLOG) PER UNIT SC SCH ×4 (08:07→21:23)
[2018-09-19] MEDS: guaiFENesin ER 600 MG TAB PO SCH ×2 (08:09→21:23)
[2018-09-19] MEDS: amLODIPine 5 MG TAB PO SCH (08:16)
[2018-09-19] MEDS: TIOTROPIUM INHALER/CAPSULE (SPIRIVA) INH SCH (08:29)
[2018-09-19] MEDS: ADVAIR HFA 230/21MCG INHALER INH SCH ×2 (13:08→21:33)
--- NOTE | 2018-09-19 13:52 | IPNPDOC ---
Subjective Date Seen The patient was seen on 09/19/18. Subjective Chief Complaint/HPI Patient seen and examined at the bedside. Reports that her respiratory status continues to improve, and she was able to walk in the hallways. However, patient is still requiring oxygen. We will continue to have the patient work with physical therapy and down titrate supplemental oxygen as tolerated. Objective Physical Examination General Exam: Positive: Alert, Cooperative, No Acute Distress ENT Exam: Positive: Atraumatic, Mucous membr. moist/pink Chest Exam: Positive: Diminished; Negative: Rales, Wheezing Heart Exam: Positive: Rate Normal, Normal S1, Normal S2 Abdomen Exam: Positive: Soft; Negative: Tenderness Extremity Exam: Negative: Tenderness, Swelling Psych Exam: Positive: Oriented x 3 Assessment /Plan Plan/VTE VTE Prophylaxis Ordered?: Yes Plan Chronic Obstructive Pulmonary Disease (COPD) Exacerbation 2/2 Influenza Cont Tamiflu Cont IV steroids, serial nebulizer treatments, Spiriva/Advair, and s/p Levaquin. We will cont to monitor the patient's respiratory status Hypoxia 2/2 Above We will cont to down-titrate supplemental oxygen as tolerated Transaminitis possibly 2/2 Fatty Liver Hepatitis panel is negative RUQ ultrasound demonstrates fatty liver. AST/ALT has been elevated since 2017 per records. Follow up as outpatient Hypertension Cont Norvasc Deep vein thrombosis (DVT) prophylaxis Heparin SC Dispo--pending clinical improvement. PT on board for functional optimization. VS, I&O, 24H, Fishbone Vital Signs/I&O Vital Signs Date Time Temp Pulse Resp B/P (MAP) Pulse Ox O2 Delivery O2 Flow Rate FiO2 09/19/18 08:16 88 159/79 09/19/18 08:00 3.0 09/19/18 06:00 96.9 19 90 09/15/18 01:26 Nasal Cannula 09/14/18 23:51 93 I&O- Last 24 Hours up to 6 AM 09/19/18 06:00 Intake Total 2820 ml Balance 2820 ml Laboratory Data 24H LABS Laboratory Tests 2 09/18/18 17:39: Bedside Glucose (Misc Panel) 257H 09/19/18 06:17: Nucleated Red Blood Cells % (auto) 0.0, Anion Gap 8, Glomerular Filtration Rate > 60.0, Blood Urea Nitrogen 14, Creatinine 0.80, Sodium Level 135L, Potassium Level 4.2, Chloride Level 96L, Carbon Dioxide Level 31, Calcium Level 8.1L, Aspartate Amino Transf (AST/SGOT) 147H, Alanine Aminotransferase (ALT/SGPT) 270H, Alkaline Phosphatase 139H, Total Bilirubin 0.4, Total Protein 6.4, Albumin 3.1L, Albumin/Globulin Ratio 0.94L CBC/BMP Laboratory Tests 09/19/18 06:17 Red Blood Count 4.57, Mean Corpuscular Volume 94.7, Mean Corpuscular Hemoglobin 32.4, Mean Corpuscular Hemoglobin Concent 34.2, Red Cell Distribution Width 12.1 , Calcium Level 8.1 L, Aspartate Amino Transf (AST/SGOT) 147 H, Alanine Aminotransferase (ALT/SGPT) 270 H, Alkaline Phosphatase 139 H, Total Bilirubin 0.4, Total Protein 6.4, Albumin 3.1 L Microbiology Microbiology 09/14/18 Blood Culture - Preliminary, Resulted No Growth after 72 hours. All specime... 09/14/18 Blood Culture - Preliminary, Resulted No Growth after 72 hours. All specime... 09/14/18 Respiratory Virus Panel (PCR) ([facility]) - Final, Complete Influenza A H1-200809/14/18 Gram Stain - Final, Complete 09/14/18 Sputum Culture - Final, Complete DAVID ODONNELL MD Sep 19, 2018 13:51
[2018-09-19 14:00] VITALS: BP 178/90
[2018-09-19 22:00] VITALS: BP 174/100
[2018-09-19] MEDS: diphenhydrAMINE 25 MG CAP PO PRN (22:39)
[2018-09-20 01:15] VITALS: BP 168/96
[2018-09-20] MEDS: methylPREDNISolone INJ 40 MG/1 ML VIAL (J2920) IV SCH ×2 (01:16→13:30)
[2018-09-20] MEDS: LEVALBUTEROL 1.25 MG/0.5 ML CONCENTRATE NEB INH SCH ×3 (01:20→14:03)
[2018-09-20 06:00] VITALS: BP 158/100
[2018-09-20 06:25] VITALS: BP 158/100
[2018-09-20 06:30] LABS: HEMOGLOBIN 15.5 g/dl (12.0-15.5); MEAN CORPUSCULAR HEMOGLOBIN 32.3 pg (27.0-33.0); MEAN CORPUSCULAR HGB CONC 35.2 g/dl (32.0-36.5); MEAN CORPUSCULAR VOLUME 91.7 fl (80.0-96.0); PLATELET COUNT, AUTOMATED 260 10^3/uL (150-450); WHITE BLOOD COUNT 17.8 10^3/uL (4.0-10.0)
[2018-09-20 07:00] LABS: ALBUMIN 3.3 GM/DL (3.2-5.2); ALT/SGPT 382 U/L (12-78); BILIRUBIN,TOTAL 0.5 MG/DL (0.2-1.0); BLOOD UREA NITROGEN 16 MG/DL (7-18); CALCIUM LEVEL 8.4 MG/DL (8.5-10.1); CARBON DIOXIDE LEVEL 31 MEQ/L (21-32); CHLORIDE LEVEL 94 MEQ/L (98-107); CREATININE FOR GFR 0.91 MG/DL (0.55-1.30); GLOMERULAR FILTRATION RATE > 60.0 (>51); GLUCOSE, FASTING 234 MG/DL (70-100); POTASSIUM SERUM 4.2 MEQ/L (3.5-5.1); SODIUM LEVEL 134 MEQ/L (136-145); TOTAL PROTEIN 6.9 GM/DL (6.4-8.2)
[2018-09-20] MEDS ORDERED: XANA0.5T PO (07:32)
[2018-09-20] MEDS: TIOTROPIUM INHALER/CAPSULE (SPIRIVA) INH SCH (07:43)
[2018-09-20] MEDS: ADVAIR HFA 230/21MCG INHALER INH SCH (07:44)
[2018-09-20 09:22] VITALS: BP 158/100
[2018-09-20] MEDS: guaiFENesin ER 600 MG TAB PO SCH (09:22)
[2018-09-20] MEDS: amLODIPine 5 MG TAB PO SCH (09:22)
[2018-09-20] MEDS: HumaLOG INSULIN (NovoLOG) PER UNIT SC SCH ×2 (09:22→12:09)
[2018-09-20] MEDS: ALPRAZolam 0.25 MG TAB PO PRN (11:11)
[2018-09-20 14:00] VITALS: BP 146/71
--- NOTE | 2018-09-20 16:19 | DS.PDOC ---
Discharge Summary General Date of Admission Sep 15, 2018 at 00:48 Date of Discharge 09/20/18 Discharge Summary PROCEDURES PERFORMED DURING STAY: None. ADMITTING/DISCHARGE DIAGNOSES: Chronic Obstructive Pulmonary Disease (COPD) Exacerbation 2/2 Influenza Transaminitis possibly 2/2 Fatty Liver Hypertension COMPLICATIONS/CHIEF COMPLAINT: Copd Exacebation/Influenza Due To Novel 2009 A H1n. HISTORY OF PRESENT ILLNESS: . 52-year-old female with past medical history of advanced COPD, hypertension, and anxiety presents to the ER with a chief complaint of cough, congestion, chest tightness, generalized fatigue, and shortness of breath over the last several days prior to her ER visit. She states that she felt increasingly short of breath despite using her inhaler and nebulizer therapy at home. She notes that she was seen by her primary care physician and was prescribed Levaquin and prednisone taper but her symptoms did not improve significantly. She presented to the ER for further evaluation and was noted to be positive for influenza A. She was subsequently admitted to the hospitalist service for further evaluation and management. During hospitalization, the patient was treated with IV steroids, serial nebulizer therapy, inhaler therapy, and Tamiflu. The patient's respiratory status significantly improved thereafter. At this time, the patient has been ambulating in the hallways with physical therapy and she is requiring 1 L of oxygen. 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 Of note, the patient was noted to have elevated liver function tests. She tells me that this has been ongoing for several years, and after taking a look back at her records to 2017 she indeed has had chronic elevations of her liver function tests. A liver ultrasound was done which revealed a fatty liver. Hepatitis screening was negative. I have advised the patient follow-up as an outpatient for monitoring of her liver function tests. The patient has been counseled to follow-up with her primary care physician within 7 days. She should also follow-up with her pulmonary doctor in 4-6 weeks. Lastly she has been advised to return to the ER for any acute emergencies. DISCHARGE MEDICATIONS: Please see below. ALLERGIES: Please see below. PHYSICAL EXAMINATION ON DISCHARGE: VITAL SIGNS: Please see below. General Exam: Positive: Alert, Cooperative, No Acute Distress ENT Exam: Positive: Atraumatic, Mucous membr. moist/pink Chest Exam: Positive: Diminished; Negative: Rales, Wheezing Heart Exam: Positive: Rate Normal, Normal S1, Normal S2 Abdomen Exam: Positive: Soft; Negative: Tenderness Extremity Exam: Negative: Tenderness, Swelling Psych Exam: Positive: Oriented x 3 LABORATORY DATA: Please see below. IMAGING: Clinical: Cough and dyspnea . Comparison: 12/03/2017 . Findings: The mediastinum and cardiac silhouette are stable and within normal limits for portable technique. The lung child are clear without acute consolidation, effusion, or pneumothorax. Skeletal structures are intact. Impression: No acute cardiopulmonary process appreciated. EXAM: CT Angiography Chest With Contrast EXAM DATE/TIME: 09/14/2018 11:38 PM CLINICAL HISTORY: 52 years old, female; Signs and symptoms; Shortness of breath TECHNIQUE: Axial computed tomographic angiography images of the chest with intravenous contrast using CT angiography protocol. All CT scans at this facility use at least one of these dose optimization techniques: automated exposure control; mA and/or kV adjustment per patient size (includes targeted exams where dose is matched to clinical indication); or iterative reconstruction. Coronal and sagittal reformatted images were created and reviewed. MIP reconstructed images were created and reviewed. CONTRAST: Contrast Material: 75 ml of isovue 370; Contrast Route: iv COMPARISON: CT ANGIO CHEST 07/07/2012 4:46 PM FINDINGS: Pulmonary arteries: The main pulmonary artery measures 25 mm. No pulmonary embolism is identified. Aorta: The ascending thoracic aorta measures 30 mm. Lungs: Normal. No consolidation. No masses. Pleural space: Normal. No pneumothorax. No pleural effusion. Heart: Normal. No cardiomegaly. No pericardial effusion. Liver: There is fatty infiltration of the liver. Spleen: Rounded focal lesions of the spleen which are nonspecific measuring up to 4.2 cm. Lymph nodes: Unremarkable. No enlarged lymph nodes. Bones/joints: Unremarkable. No acute fracture. Soft tissues: Slight interstitial prominence with minimal bullous change and minimal scattered fibro-atelectatic change. Other findings: Calcified granulomata. IMPRESSION: 1. Slight interstitial prominence with minimal bullous change and minimal scattered fibro-atelectatic change. 2. Fatty infiltration of the liver. 3. Focal lesions of the spleen which are nonspecific. 4. Minimal evidence of old granulomatous disease. 5. Otherwise negative CTA chest. No pulmonary embolism is identified. RIGHT UPPER QUADRANT SONOGRAPHY: HISTORY: Increased liver function studies. Right upper quadrant discomfort. FINDINGS: Scanning through the right upper quadrant of the abdomen demonstrates a normal sized thin-walled gallbladder without evidence of stone or polyp. Common bile duct is normal measuring 0.3 cm in greatest diameter. Mildly enlarged liver is seen with a craniocaudal imaging span of 19.5 cm in the midclavicular line. There is evidence of fatty infiltration of the liver but no focal liver mass lesion is observed. Limited views of the pancreas show no abnormality. The right kidney shows no evidence of hydronephrosis. There is mild cortical atrophy. Right renal dimensions are 9.9 x 4.2 x 2.7 cm. There is no evidence of ascites. IMPRESSION: Fatty infiltration of the liver. Mild hepatomegaly. Otherwise negative right upper quadrant sonography. PROGNOSIS: Fair ACTIVITY: As tolerated. DIET: Low-fat, low-cholesterol diet DISCHARGE PLAN: DISPOSITION: . Home DISCHARGE INSTRUCTIONS: The patient has been counseled to follow-up with her primary care physician within 7 days. Repeat LFTs in 1-2 weeks. She should also follow-up with her [facility] doctor in 4-6 weeks. Lastly she has been advised to return to the ER for any acute emergencies. DISCHARGE CONDITION: Stable. TIME SPENT ON DISCHARGE: Greater than 30 minutes. Vital Signs/I&Os Vital Signs Date Time Temp Pulse Resp B/P (MAP) Pulse Ox O2 Delivery O2 Flow Rate FiO2 09/20/18 14:00 98.0 108 17 146/71 (96) 94 1.0 09/15/18 01:26 Nasal Cannula 09/14/18 23:51 93 I&O- Last 24 Hours up to 6 AM 09/20/18 05:59 Intake Total 1170 ml Balance 1170 ml Laboratory Data Labs 24H Laboratory Tests 2 09/19/18 16:26: Bedside Glucose (Misc Panel) 287H 09/20/18 05:45: Nucleated Red Blood Cells % (auto) 0.0, Anion Gap 9, Glomerular Filtration Rate > 60.0, Blood Urea Nitrogen 16, Creatinine 0.91, Sodium Level 134L, Potassium Level 4.2, Chloride Level 94L, Carbon Dioxide Level 31, Calcium Level 8.4L, Aspartate Amino Transf (AST/SGOT) 162H, Alanine Aminotransferase (ALT/SGPT) 382H, Alkaline Phosphatase 171H, Total Bilirubin 0.5, Total Protein 6.9, Albumin 3.3, Albumin/Globulin Ratio 0.92L CBC/BMP Laboratory Tests 09/20/18 05:45 Red Blood Count 4.80, Mean Corpuscular Volume 91.7, Mean Corpuscular Hemoglobin 32.3, Mean Corpuscular Hemoglobin Concent 35.2, Red Cell Distribution Width 12.1, Calcium Level 8.4 L, Aspartate Amino Transf (AST/SGOT) 162 H, Alanine Aminotransferase (ALT/SGPT) 382 H, Alkaline Phosphatase 171 H, Total Bilirubin 0.5, Total Protein 6.9, Albumin 3.3 FSBS Laboratory Tests Test 09/19/18 16:26 Range/Units Bedside Glucose (Misc Panel) 287 70-105 MG/DL Microbiology Microbiology 09/14/18 Blood Culture - Final, Complete NO GROWTH AFTER 5 DAYS 09/14/18 Blood Culture - Final, Complete NO GROWTH AFTER 5 DAYS 09/14/18 Respiratory Virus Panel (PCR) (FLOWER) - Final, Complete Influenza A H1-200809/14/18 Gram Stain - Final, Complete 09/14/18 Sputum Culture - Final, Complete Discharge Medications Scheduled Guaifenesin (Mucinex) 600 Mg Tab, 600 MG PO BID, (Reported) Prednisone (Prednisone) 10 Mg Tab, 10 MG PO ASDIRECTED, (Reported) TAPERING DOSE. 40MG X 4 DAYS, 30MG X 4 DAYS, 20MG X 4 DAYS, THEN 10MG X 4 DAYS. ON 09/13/18 TOOK FIRST 30MG DOSE. Salmeterol/Fluticasone (Advair Diskus 500-50 Mcg/Dose) 28 Puff/Inhaler Aerp, 1 PUFF INH BID, (Reported) Tiotropium [place] Monohydrate (Spiriva Handihaler) 18 Mcg Cap, 1 CAP INH DAILY, (Reported) Scheduled PRN Albuterol Sulfate (Albuterol Sulfate) 2.5 Mg/3 Ml Nebu, 2.5 MG PO QID PRN for SHORTNESS OF BREATH, (Reported) Albuterol Sulfate (Proair Hfa) 108 Mcg/Act Aer, 2 PUFF INH QID PRN for SHORTNESS OF BREATH, (Reported) Alprazolam (Xanax) 0.5 Mg Tab, 1 TAB PO BIDP PRN for anxiety Allergies Coded Allergies: Penicillins (Unverified Allergy, Unknown, CHILDHOOD ALLERGY, 09/15/18) DAVID ODONNELL MD Sep 20, 2018 16:19
== END 2018-09-20 16:36 | disposition home or self-care (01) | DRG 140 ==
LOC: M ED 21:11 → M ED INP 09-15 00:48 → M MSPAV 09-15 01:45
PROVIDERS: ADMIT Internal Medicine; ATTEND Internal Medicine
DX: J44.1 Chronic obstructive pulmonary disease with (acute) exacerbation (principal); K76.0 Fatty (change of) liver, not elsewhere classified; J10.1 Influenza due to other identified influenza virus with other respiratory manifestations; Z87.891 Personal history of nicotine dependence; Z79.899 Other long term (current) drug therapy; Z88.0 Allergy status to penicillin

== ENCOUNTER → 2018-10-29 | Outpatient (CLI) | payer OTHER ==
[~2018-10-29] MED LIST changes: -/ADVA50050 INH; -/MOXI40TA PO; +ADVA1AER2 INH; +ALBU83IN PO; +AVEL1TAB2 PO; +LEVO500T3 PO; +MUCI600T31 PO; +PRED10TA2 PO; +PROAAER10 INH; +SPIR1CAP INH; +XANA0.5T PO
--- NOTE | 2018-10-30 06:53 | ECHO ---
DATE OF PROCEDURE: 10/29/2018 REFERRING PROVIDER: Dr. Ethan Renae. PATIENT LOCATION: Outpatient. REASON FOR ECHOCARDIOGRAM: Respiratory failure. 2D MEASUREMENT: IVS - 1.2 cm LV - 2.6 cm LVPW - 1.1 cm LA - 3.0 cm Aorta - 2.6 cm IVC - 1.7 cm DOPPLER MEASUREMENT: Peak velocity across the aortic valve - 1.2 m/s Peak velocity across the LVOT - 0.68 m/s Mitral E - 0.61, Mitral A - 0.86 with a ratio of 0.7 2D COMMENTS: 1. Technically limited study due to poor acoustic window secondary to lung interference. 2. Normal global left ventricular systolic function with a normal left ventricular size and normal left ventricular wall thickness. The left ventricle was hyperdynamic with an estimated global left ventricular systolic ejection fraction of 65-70%. 3. Normal left atrium. The right atria appeared to be mildly enlarged as well as the left ventricle. There was left ventricular wall thickness. The right ventricular free wall was navneet well. 4. The atrial septum appeared to be normal without evidence of defect or shunt. 5. Normal aortic root. 6. Small pericardial effusion noted in limited views. No evidence of cardiac tamponade. Fibrinous material noted in the pericardial fluid/pericardial space. 7. Mildly calcified aortic valve with normal leaflet excursion. Mildly calcified mitral annulus with normal anterior mitral valve leaflet motion. Normal tricuspid valve. The pulmonic valve was not well visualized but appeared to be normal in limited views. The proximal pulmonary artery branches were not visualized. 8. The inferior vena cava was normal in size, central venous pressure mildly normal. 9. Doppler: No significant Doppler abnormalities detected but trace mitral regurgitation. Abnormal relaxation pattern was noted across the mitral valve leaflets as well as the mitral valve annulus consistent with impaired relaxation. IMPRESSION: 1. Technically limited study due to poor acoustic window secondary to lung interference. 2. Normal global left ventricular systolic function with a small hyperdynamic left ventricle. 3. There are features of left ventricular systolic dysfunction, grade 1. 4. Aortic valve sclerosis without stenosis or aortic regurgitation. 5. Mitral annulus calcification with trace mitral regurgitation. 6. The right heart chambers appear to be mildly enlarged in limited views, but with normal systolic function of the right ventricle. There are findings consistent with right ventricular hypertrophy. 7. Small pericardial effusion noted in limited views. No evidence of cardiac tamponade. Fibrinous material was noted in the pericardial fluid/pericardial space. Patient might benefit from a chest CT if not done recently to reassess the pericardial fluid.
== END ==
LOC: M CARPUL 10:55
PROVIDERS: ATTEND Internal Medicine Pulmonary Disease
DX: J96.11 Chronic respiratory failure with hypoxia (principal)

== ENCOUNTER → 2019-05-20 | Outpatient (CLI) | payer OTHER ==
--- NOTE | 2019-05-20 11:51 | REP ---
FLUOROSCOPIC SNIFF TEST: HISTORY: COPD. Fluoroscopy time is 0.6 minutes. FINDINGS: Fluoroscopic evaluation of the diaphragm with sniffing shows normal direction of the diaphragmatic motion with forced inspiration bilaterally. The amplitude of motion is a little larger on the left than the right but there is no evidence of diaphragmatic paralysis or paradoxical motion. IMPRESSION: Normal direction of diaphragmatic motion with sniffing. Electronically Signed by Pedro Rangel MD 05/20/2019 03:29 P
== END ==
LOC: M RAD 10:45
PROVIDERS: ATTEND Internal Medicine Pulmonary Disease
DX: J44.9 Chronic obstructive pulmonary disease, unspecified (principal)

== ENCOUNTER → 2019-05-26 | Outpatient (CLI) | payer OTHER ==
[2019-05-26 10:32] LABS: BASO # 0.1 10^3/uL (0.0-0.2); BASO % 0.6 % (0.0-1.0); EOS # 0.2 10^3/uL (0.0-0.5); EOS % 2.1 % (0.0-3.0); HEMATOCRIT 48.2 % (36.0-47.0); HEMOGLOBIN 16.1 g/dl (12.0-15.5); LYMPH # 2.3 10^3/uL (1.5-5.0); LYMPH % 26.7 % (24.0-44.0); MEAN CORPUSCULAR HEMOGLOBIN 32.8 pg (27.0-33.0); MEAN CORPUSCULAR HGB CONC 33.4 g/dl (32.0-36.5); MEAN CORPUSCULAR VOLUME 98.2 fl (80.0-96.0); MONO % 11.4 % (0.0-5.0); NEUTROPHILS # 5.2 10^3/uL (1.5-8.5); NEUTROPHILS % 58.6 % (36.0-66.0); PLATELET COUNT, AUTOMATED 231 10^3/uL (150-450); RED BLOOD COUNT 4.91 10^6/uL (4.00-5.40); WHITE BLOOD COUNT 8.8 10^3/uL (4.0-10.0)
[2019-05-26 11:36] LABS: ALBUMIN 3.7 GM/DL (3.2-5.2); ALT/SGPT 56 U/L (12-78); BILIRUBIN,TOTAL 0.8 MG/DL (0.2-1.0); BLOOD UREA NITROGEN 4 MG/DL (7-18); CALCIUM LEVEL 8.9 MG/DL (8.5-10.1); CARBON DIOXIDE LEVEL 31 MEQ/L (21-32); CHLORIDE LEVEL 97 MEQ/L (98-107); CHOLESTEROL LEVEL 254 MG/DL (<200); CHOLESTEROL RISK RATIO 9.769 (<5); CREATININE FOR GFR 0.75 MG/DL (0.55-1.30); FREE T4 0.74 NG/DL (0.76-1.46); GLOMERULAR FILTRATION RATE > 60.0 (>51); GLUCOSE, FASTING 142 MG/DL (70-100); HDL CHOLESTEROL 26 MG/DL (>40); NON-HDL-C 228 MG/DL; POTASSIUM SERUM 4.7 MEQ/L (3.5-5.1); SODIUM LEVEL 136 MEQ/L (136-145); TOTAL PROTEIN 7.8 GM/DL (6.4-8.2); TRIGLYCERIDES LEVEL 401 MG/DL (<150)
[2019-05-27 10:37] LABS: HEMOGLOBIN A1c 6.5 %
== END ==
LOC: M SMT 08:13
PROVIDERS: ATTEND Family Medicine
DX: Z13.220 Encounter for screening for lipoid disorders (principal); Z13.29 Encounter for screening for other suspected endocrine disorder; Z13.0 Encounter for screening for diseases of the blood and blood-forming organs and certain disorders involving the immune mechanism

== ENCOUNTER → 2019-05-27 | Outpatient (CLI) | payer OTHER ==
--- NOTE | 2019-05-27 10:43 | REP ---
Two-view chest: 05/27/2019. Indication: Emphysema. Comparison: CT chest complete of the same day as well as chest x-ray dated 12/03/2018. Findings: The lungs are free of airspace consolidation. There is no significant pleural effusion or pneumothorax. Pulmonary granulomata are noted bilaterally. The cardiac silhouette is not enlarged. Hyperinflated lungs are present consistent with COPD. Impression: No acute cardiopulmonary process. Electronically Signed by Preston Andres DO 05/27/2019 10:34 A
--- NOTE | 2019-05-27 12:25 | REP ---
Differential lung scan: Ventilation and perfusion study. History: COPD. Comparison CT study May 27, 2019. Technique: 1.0 mCi technetium 99m MAA is given intravenously for the perfusion study and is followed by a 2.0 mCi technetium 99m DTPA aerosol dose for the ventilation study. Anterior and posterior planar images are acquired for each portion of the study. Upper, middle and lower third regions of interest are drawn in the lung child bilaterally to simulate segmental distribution. Scintigraphic findings: Overall on the perfusion study, 50.4% of counts emanate from the left lung and 49.6% of counts emanate from the right lung. On the ventilation study this differential lung function is 49.6% left and 51.4% right. There is some central bronchial deposition of inspired ventilatory tracer bilaterally consistent with COPD. Ventilatory uptake is impaired in the upper lobes bilaterally. Segmental data is available on the PACS system for more detailed review. Electronically Signed by Pedro Rangel MD 05/27/2019 12:46 P
--- NOTE | 2019-05-28 04:45 | REP ---
Clinical: History of COPD. Technique: Axial noncontrast images from the thoracic inlet to the upper abdomen with coronal and sagittal re-formations. Comparison: 09/14/2018. Findings: Early moderate COPD/emphysematous changes are appreciated. Elements of bilateral scarring predominantly involving the apices (right greater than left) remain stable. Innumerable scattered of 1-2 mm primarily calcified nodules are noted throughout the bilateral lung child appear essentially unchanged. No acute consolidation, significant nodule or mass lesion appreciated. No pleural effusion. No pneumothorax. Tracheobronchial tree is patent. No adenopathy. Atherosclerotic changes to the thoracic aorta noted without aneurysm. No cardiomegaly or pericardial effusion. Musculoskeletal structures without focal osseous abnormality. Limited upper abdomen demonstrates diffuse hepatic steatosis. 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 Impression: 1. Changes related to prior granulomas disease along with early moderate COPD remains stable. No new/significant mediastinal or pleuroparenchymal process appreciated. 2. Hepatic steatosis. 3. 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 Electronically Signed by Malachi Rodriguez MD 05/28/2019 04:37 A
== END ==
LOC: M RAD 09:09
PROVIDERS: ATTEND Internal Medicine Pulmonary Disease
DX: J43.1 Panlobular emphysema (principal); K76.0 Fatty (change of) liver, not elsewhere classified; D73.89 Other diseases of spleen
CPT/HCPCS: 71046; 71250; 78598; A9540; A9567

== ENCOUNTER → 2019-06-17 | Outpatient (CLI) | payer OTHER, SELFPAY | LOC: M CARPUL 08:56 | PROVIDERS: ATTEND Internal Medicine Pulmonary Disease | DX: R06.00 Dyspnea, unspecified (principal) ==

== ENCOUNTER → 2020-02-05 | Outpatient (CLI) | payer OTHER ==
[2020-02-05 11:09] LABS: INR 1.21
[2020-02-05 11:11] LABS: BILIRUBIN,DIRECT 0.2 MG/DL (0.0-0.2); BILIRUBIN,TOTAL 0.5 MG/DL (0.2-1.0); TOTAL PROTEIN 8.7 GM/DL (6.4-8.2)
[2020-02-05 11:17] LABS: BLOOD UREA NITROGEN 6 MG/DL (7-18); CALCIUM LEVEL 9.2 MG/DL (8.5-10.1); CARBON DIOXIDE LEVEL 33 MEQ/L (21-32); CHLORIDE LEVEL 102 MEQ/L (98-107); CREATININE FOR GFR 0.96 MG/DL (0.55-1.30); FREE T4 0.95 NG/DL (0.76-1.46); GLOMERULAR FILTRATION RATE > 60.0 (>51); GLUCOSE, FASTING 123 MG/DL (70-100); SODIUM LEVEL 140 MEQ/L (136-145)
[2020-03-31 13:19] LABS: TISSUE TRANSGLUTAMINASE IgA SEE SEPARATE REPORT UNITS
== END ==
LOC: M PLALAB 08:20
PROVIDERS: ATTEND Internal Medicine Gastroenterology
DX: K75.81 Nonalcoholic steatohepatitis (NASH) (principal); K21.9 Gastro-esophageal reflux disease without esophagitis; R14.0 Abdominal distension (gaseous); E11.9 Type 2 diabetes mellitus without complications; E03.9 Hypothyroidism, unspecified; Z12.11 Encounter for screening for malignant neoplasm of colon

== ENCOUNTER → 2020-03-12 | Outpatient (CLI) | payer OTHER | LOC: M LABSMTC 12:48 | PROVIDERS: ATTEND Internal Medicine Pulmonary Disease | DX: Z11.59 Encounter for screening for other viral diseases (principal) | CPT/HCPCS: C9803; U0003 ==

== ENCOUNTER → 2020-05-24 | Outpatient (CLI) | payer OTHER | LOC: M LABSMTC 13:43 | PROVIDERS: ATTEND Internal Medicine Critical Care Medicine | DX: Z01.812 Encounter for preprocedural laboratory examination (principal); Z20.828 Contact with and (suspected) exposure to other viral communicable diseases ==

== ENCOUNTER → 2020-06-03 | Outpatient (CLI) | payer OTHER | LOC: M LABSMTC 11:08 | PROVIDERS: ATTEND Internal Medicine Critical Care Medicine | DX: Z20.828 Contact with and (suspected) exposure to other viral communicable diseases (principal) ==

== ENCOUNTER → 2020-07-29 | Outpatient (CLI) | payer OTHER ==
[~2020-07-29] MED LIST changes: +PROHANCE 279.3MG/ML 15ML VIAL As Ordered ONE
--- NOTE | 2020-07-29 09:33 | REP ---
INDICATION: ABNORMAL LIVER ENZYMES. COMPARISON: CT chest 05/27/2019. TECHNIQUE: Multiple sequences obtained in the axial coronal planes prior to and following the intravenous administration of 13 mL ProHance. FINDINGS: The liver is mildly prominent in size with a length of 17 cm. There is heterogeneous diffuse fatty infiltration of the liver. No suspicious enhancing liver mass is seen. Gallbladder demonstrates no abnormality. There is no intrahepatic or extrahepatic biliary dilatation. The pancreas appears normal with no mass. There is no pancreatic duct dilatation. In the spleen there are 2 septated cysts superiorly with no suspicious internal enhancement. These are seen on prior CT exams. They measure 3.8 cm and 3.6 cm in diameter. More inferiorly there is a 1 cm cyst. The adrenal glands are normal. Kidneys appear unremarkable with no abnormality identified. There is no hydronephrosis. No adenopathy or free fluid is seen. IMPRESSION: Mild hepatomegaly and diffuse fatty infiltration of the liver. No suspicious enhancing mass. No biliary dilatation. No evidence of gallbladder abnormality. Septated cysts in the spleen have been seen on prior CT exams. No adenopathy or free fluid. <Electronically signed by Severiano Caal > 07/29/20 0929
== END ==
LOC: M RAD 07:38
DX: R74.8 Abnormal levels of other serum enzymes (principal); K76.0 Fatty (change of) liver, not elsewhere classified
CPT/HCPCS: 74183; A9576

== ENCOUNTER → 2021-01-07 | Outpatient (CLI) | payer MEDICAID, OTHER ==
[~2021-01-07] MED LIST changes: -PROHANCE 279.3MG/ML 15ML VIAL As Ordered ONE
--- NOTE | 2021-01-07 10:47 | REPMRS ---
Patient History The patient states she had a clinical breast exam in December 2020. No known family history of cancer. Patient states no breast complaints today. Patient has signed MRS History Sheet. Digital Woman Screen Mammo: January 07, 2021 - Exam #: [id number] Bilateral CC and MLO view(s) were taken. Technologist: Meka Pruitt Technologist Prior study comparison: August 29, 2019, bilateral digital mammo screening bilat, performed at [facility]. FINDINGS: There are scattered fibroglandular densities. The Volpara volumetric breast density category is:B. There has been no change in the appearance of the mammogram from the prior studies. There is a mild amount of scattered fibroglandular density which is fairly symmetric. There is no interval development of dominant mass, architectural distortion, or grouped microcalcification suggestive of malignancy. 3-D tomosynthesis shows no additional findings. Assessment: BI-RADS/ACR category 1 mammogram. Negative Mammogram. Recommendation Routine screening mammogram of both breasts in 1 year (for women over age 40). This patient's [facility] Lifetime Breast Cancer Risk is estimated at 7.3 %. This mammogram was interpreted with the aid of an FDA-approved computer-aided dectection system. Electronically Signed By: Brian Rangel MD 01/07/21 [id number]
== END ==
LOC: M WHC 09:24
PROVIDERS: ATTEND Family Medicine
DX: Z12.31 Encounter for screening mammogram for malignant neoplasm of breast (principal)

== ENCOUNTER → 2021-01-21 | Outpatient (CLI) | payer OTHER ==
[~2021-01-21] MED LIST changes: +CALC500T52 PO; +FLUO10CA16 PO; +JANU100T PO; +LOSA100T50 PO; +ROSU10TA6 PO; +SYNT50TA PO
== END ==
LOC: M LABSMTC 10:48
PROVIDERS: ATTEND Anesthesiology
DX: Z01.818 Encounter for other preprocedural examination (principal); Z11.52 Encounter for screening for COVID-19

== ENCOUNTER 2021-01-24 07:34 | Day surgery (SDC) | payer OTHER ==
[~2021-01-24] VITALS: Ht 154.9 cm; Wt 71.6 kg
[~2021-01-24 07:34] MED LIST changes: +NS 1,000 ML IV ONE
[2021-01-24] MEDS ORDERED: fentaNYL 100 MCG/2 ML INJECTION (J3010) As Ordered ONE (07:36)
[2021-01-24] MEDS ORDERED: LIDOCAINE 2% 100MG/5ML SDV (FOR ANES.) As Ordered ONE (07:36)
[2021-01-24] MEDS ORDERED: propofoL 200 MG/20 ML VIAL As Ordered ONE (07:36)
--- NOTE | 2021-01-24 09:26 | ROOR ---
Patient Name: Nicolette Ordaz Procedure Date: 01/24/2021 9:07 AM Date of : 1965 Age: 55 Room: [facility] Gender: Female Note Status: Finalized Procedure: Upper GI endoscopy Indications: Screening procedure Providers: Lazaro Sandoval Jr, MD Referring MD: Hien SNEED DO Requesting Provider: Medicines: Propofol per Anesthesia Complications: No immediate complications. Procedure: Pre-Anesthesia Assessment: - Prior to the procedure, a History and Physical was performed, and patient medications and allergies were reviewed. The patient is competent. The risks and benefits of the procedure and the sedation options and risks were discussed with the patient. All questions were answered and informed consent was obtained. Patient identification and proposed procedure were verified by the physician and the nurse in the pre-procedure area and in the procedure room. Mental Status Examination: alert and oriented. Airway Examination: normal oropharyngeal airway and neck mobility. Respiratory Examination: clear to auscultation. CV Examination: normal. ASA Grade Assessment: II - A patient with mild systemic disease. After reviewing the risks and benefits, the patient was deemed in satisfactory condition to undergo the procedure. The anesthesia plan was to use moderate sedation / analgesia (conscious sedation). Immediately prior to administration of medications, the patient was re-assessed for adequacy to receive sedatives. The heart rate, respiratory rate, oxygen saturations, blood pressure, adequacy of pulmonary ventilation, and response to care were monitored throughout the procedure. The physical status of the patient was re-assessed after the procedure. The Endoscope was introduced through the mouth, and advanced to the second part of duodenum. The upper GI endoscopy was accomplished without difficulty. The patient tolerated the procedure well. Findings: The middle third of the esophagus was normal. Localized mild mucosal changes characterized by granularity were found in the upper third of the esophagus. Biopsies were taken with a cold forceps for histology. LA Grade A (one or more mucosal breaks less than 5 mm, not extending between tops of 2 mucosal folds) esophagitis with no bleeding was found at the gastroesophageal junction. The cardia, gastric fundus, gastric body, gastric antrum, prepyloric region of the stomach and pylorus were normal. The duodenal bulb, first portion of the duodenum and second portion of the duodenum were normal. Impression: - Normal middle third of esophagus. - Granular mucosa in the esophagus. Biopsied. - LA Grade A reflux esophagitis. - Normal cardia, gastric fundus, gastric body, antrum, prepyloric region of the stomach and pylorus. - Normal duodenal bulb, first portion of the duodenum and second portion of the duodenum. Recommendation: - Discharge patient to home (ambulatory). - Return to my office as previously scheduled. Procedure Code(s): --- Professional --- 58119, Esophagogastroduodenoscopy, flexible, transoral; with biopsy, single or multiple Diagnosis Code(s): --- Professional --- K22.8, Other specified diseases of esophagus K21.0, Gastro-esophageal reflux disease with esophagitis Z13.810, Encounter for screening for upper gastrointestinal disorder CPT copyright 2019 [employer]. All rights reserved. The codes documented in this report are preliminary and upon health safety specialist review may be revised to meet current compliance requirements. Lazaro Sandoval MD Lazaro Sandoval Jr, MD 01/24/2021 9:25:37 AM Electronically signed by Lazaro Sandoval Jr, MD Number of Addenda: 0 Note Initiated On: 01/24/2021 9:07 AM Estimated Blood Loss: Estimated blood loss: none.
[2021-01-24 09:55] VITALS: BP 142/71
== END 2021-01-24 10:05 | disposition home or self-care (01) ==
LOC: M OPP 07:34
PROVIDERS: ATTEND Surgery
DX: Z12.10 Encounter for screening for malignant neoplasm of intestinal tract, unspecified (principal); K22.8 Other specified diseases of esophagus; K21.00 Gastro-esophageal reflux disease with esophagitis, without bleeding; Z80.0 Family history of malignant neoplasm of digestive organs; J44.9 Chronic obstructive pulmonary disease, unspecified; K75.81 Nonalcoholic steatohepatitis (NASH); Z79.899 Other long term (current) drug therapy; Z87.891 Personal history of nicotine dependence
CPT/HCPCS: 43239; 88305; J3010

== ENCOUNTER → 2021-06-02 | Outpatient (CLI) | payer OTHER, MEDICAID ==
[~2021-06-02] MED LIST changes: -NS 1,000 ML IV ONE
== END ==
LOC: M WHC 09:19
PROVIDERS: ATTEND Family Medicine
DX: Z76.82 Awaiting organ transplant status (principal)

== ENCOUNTER → 2021-08-02 | Outpatient (CLI) | payer OTHER, MEDICAID ==
[~2021-08-02] MED LIST changes: -FLUO10CA16 PO; +FLUO10CA18 PO; -LEVO500T3 PO; +LEVO500T4 PO; +LOSA100T45 PO; -LOSA100T50 PO
== END ==
LOC: M EKG 16:50
PROVIDERS: ATTEND Internal Medicine Critical Care Medicine
DX: J44.9 Chronic obstructive pulmonary disease, unspecified (principal)

== ENCOUNTER → 2021-08-03 | Outpatient (CLI) | payer OTHER, MEDICAID | LOC: M WHC 11:34 | PROVIDERS: ATTEND Internal Medicine Critical Care Medicine | DX: M85.851 Other specified disorders of bone density and structure, right thigh (principal); M85.852 Other specified disorders of bone density and structure, left thigh ==

== ENCOUNTER → 2021-09-05 | Outpatient (CLI) | payer OTHER, MEDICAID | LOC: M WHC 09:17 | PROVIDERS: ATTEND Nurse Practitioner | DX: K74.60 Unspecified cirrhosis of liver (principal) ==

== ENCOUNTER → 2022-01-13 | Outpatient (CLI) | payer OTHER, MEDICAID ==
[~2022-01-13] MED LIST changes: +ALBU2.5V10 PO; -ALBU83IN PO
== END ==
LOC: M WHC 06:41
PROVIDERS: ATTEND Family Medicine
DX: Z12.31 Encounter for screening mammogram for malignant neoplasm of breast (principal)

== ENCOUNTER → 2022-02-13 | Outpatient (CLI) | payer OTHER, MEDICAID ==
[~2022-02-13] MED LIST changes: +GASTROGRAFIN SOLUTION 30ML (Q9963) As Ordered ONE; +ISOVUE-370 76% 100ML VIAL As Ordered ONE; +LEVO1TAB39 PO; -LEVO500T4 PO
== END ==
LOC: M RAD 09:24
PROVIDERS: ATTEND Nurse Practitioner
DX: Z01.818 Encounter for other preprocedural examination (principal); K76.0 Fatty (change of) liver, not elsewhere classified
CPT/HCPCS: 74178; Q9963; Q9967

== ENCOUNTER 2022-05-12 14:43 | Emergency (ER) | payer OTHER, MEDICAID ==
[~2022-05-12] VITALS: Ht 154.9 cm; Wt 71.3 kg
[~2022-05-12 14:43] MED LIST changes: -GASTROGRAFIN SOLUTION 30ML (Q9963) As Ordered ONE; -ISOVUE-370 76% 100ML VIAL As Ordered ONE
[2022-05-12] MEDS ORDERED: SOLI10TA (14:54)
[2022-05-12] MEDS ORDERED: PRED10TA2 (14:54)
[2022-05-12] MEDS ORDERED: BUDE0.5S6 (14:54)
[2022-05-12] MEDS ORDERED: ONGL1TAB9 (14:54)
[2022-05-12 17:10] VITALS: BP 140/85
== END 2022-05-12 17:17 | disposition home or self-care (01) ==
LOC: M ED 14:43
DX: R09.89 Other specified symptoms and signs involving the circulatory and respiratory systems (principal); R05.9 Cough, unspecified; E11.9 Type 2 diabetes mellitus without complications; I10 Essential (primary) hypertension; J45.909 Unspecified asthma, uncomplicated; E78.5 Hyperlipidemia, unspecified; Z88.0 Allergy status to penicillin; Z79.51 Long term (current) use of inhaled steroids; Z79.899 Other long term (current) drug therapy; Z79.890 Hormone replacement therapy

== ENCOUNTER → 2022-10-19 | Outpatient (CLI) | payer OTHER, MEDICAID ==
[~2022-10-19] MED LIST changes: +ADVA230A INH; +ALBU8.5H INH; +BUDE0.5S6 INH; +IBAN150T6 PO; +NYST-38 SS; +ONGL1TAB9 PO; +PRED10TA2; +SOLI10TA PO
== END ==
LOC: M RAD 17:26
PROVIDERS: ATTEND Internal Medicine Pulmonary Disease
DX: J43.1 Panlobular emphysema (principal)

== ENCOUNTER 2022-10-25 14:19 | Inpatient (IN) | payer OTHER, MEDICAID ==
[~2022-10-25] VITALS: Ht 154.9 cm; Wt 67.3 kg
[~2022-10-25 14:19] MED LIST changes: -ADVA230A INH; -ALBU8.5H INH; -IBAN150T6 PO; -NYST-38 SS
[2022-10-25] MEDS ORDERED: IPRATROPIUM 0.5MG/ALBUTEROL 2.5MG INH SOL UD 3ML (DUONEB) NEB ONE (14:30)
[2022-10-25] MEDS ORDERED: methylPREDNISolone 125MG 2ML VIAL IV ONE (14:30)
[2022-10-25] MEDS ORDERED: ALBUTEROL SULFATE 2.5MG/0.5ML INH NEB SOLN INH ONE (14:30)
[2022-10-25 14:55] LABS: ABG BASE EXCESS 2.2 (-2.0-2.0); ABG HCO3 25.8 MEQ/L (22.0-26.0); ABG O2 SATURATION 99.1 % (95.0-99.0); ABG PARTIAL PRESSURE CO2 36.9 mmHg (35.0-45.0); ABG PARTIAL PRESSURE O2 164.8 mmHg (75.0-100.0); ABG STANDARD HCO3 26.5 MEQ/L (22.0-26.0); ABG pH (ARTERIAL) 7.463 UNITS (7.350-7.450)
[2022-10-25 15:02] LABS: BASO % 0.2 % (0.0-1.0); EOS # 0.1 10^3/uL (0.0-0.5); EOS % 0.8 % (0.0-3.0); HEMATOCRIT 42.1 % (36.0-47.0); HEMOGLOBIN 14.4 g/dl (12.0-15.5); LYMPH # 1.6 10^3/uL (1.5-5.0); LYMPH % 14.5 % (24.0-44.0); MEAN CORPUSCULAR HEMOGLOBIN 29.8 pg (27.0-33.0); MEAN CORPUSCULAR HGB CONC 34.2 g/dl (32.0-36.5); MONO # 1.1 10^3/uL (0.0-0.8); NEUTROPHILS # 8.2 10^3/uL (1.5-8.5); NEUTROPHILS % 74.1 % (36.0-66.0); PLATELET COUNT, AUTOMATED 278 10^3/uL (150-450); RED BLOOD COUNT 4.84 10^6/uL (4.00-5.40); WHITE BLOOD COUNT 11.1 10^3/uL (4.0-10.0)
[2022-10-25 15:28] LABS: CK-MB VALUE MASS 1.8 NG/ML (<3.6)
[2022-10-25 15:30] LABS: ALBUMIN 4.2 G/DL (3.2-5.2); ALKALINE PHOSPHATASE 86 U/L (46-116); ALT/SGPT 51 U/L (7.0-40); AST/SGOT 37 U/L (<34); BILIRUBIN,DIRECT 0.2 MG/DL (<0.4); BILIRUBIN,TOTAL 0.4 MG/DL (0.3-1.2); BLOOD UREA NITROGEN 7 MG/DL (9-23); CALCIUM LEVEL 9.6 MG/DL (8.5-10.1); CARBON DIOXIDE LEVEL 29 MMOL/L (20-31); CHLORIDE LEVEL 101 MMOL/L (98-107); CPK CREATINE PHOSPHOKINASE 150 U/L (34-145); CREATININE FOR GFR 0.73 MG/DL (0.55-1.30); GLOMERULAR FILTRATION RATE > 60.0 (>51); GLUCOSE, FASTING 115 MG/DL (60-100); POTASSIUM SERUM 4.1 MMOL/L (3.5-5.1); SODIUM LEVEL 136 MMOL/L (136-145); TOTAL PROTEIN 7.2 G/DL (5.7-8.2)
[2022-10-25 15:32] LABS: THYROID STIMULATING HORMONE 1.231 uIU/ML (0.55-4.78); THYROXINE (T4) 12.1 UG/DL (4.5-10.9)
[2022-10-25] MEDS ORDERED: ACETAMINOPHEN TAB 650MG DOSE (2X325MG) PO ONE (15:40)
[2022-10-25 16:06] LABS: CK-MB VALUE MASS 1.5 NG/ML (<3.6)
[2022-10-25 16:08] LABS: MB/CK RELATIVE INDEX 0.97 (< OR =4)
[2022-10-25] MEDS ORDERED: ISOVUE-370 76% 100ML VIAL As Ordered ONE (16:15)
[2022-10-25] MEDS ORDERED: NYST-38 SS (16:37)
[2022-10-25] MEDS ORDERED: ADVA230A INH (16:37)
[2022-10-25] MEDS ORDERED: IBAN150T6 PO (16:37)
[2022-10-25] MEDS ORDERED: ALBU8.5H INH (16:38)
[2022-10-25] MEDS ORDERED: HOME MED LIST COMPLETE! XX SCH (16:40)
[2022-10-25] MEDS ORDERED: ALBUTEROL 90 MCG/ACT 8GM HFA INHALER INH PRN (17:00)
[2022-10-25] MEDS ORDERED: BUDESONIDE 0.5 MG/2 ML INHALATION SUSPENSION INH PRN (17:00)
[2022-10-25] MEDS ORDERED: NYSTATIN 500,000U/5ML SUSP UDC SS PRN (17:00)
[2022-10-25] MEDS ORDERED: AZITHROMYCIN INJ 500 MG, VIAL MATE ADAPTER 1 EACH in NS 250 ML IV SCH (18:00)
[2022-10-25 19:08] LABS: PROTHROMBIN TIME 13.4 SECONDS (12.5-14.5)
[2022-10-25] MEDS: ADVAIR HFA 230/21MCG INHALER INH SCH (20:01)
[2022-10-25] MEDS: IPRATROPIUM 0.5MG/ALBUTEROL 2.5MG INH SOL UD 3ML (DUONEB) NEB SCH (20:02)
[2022-10-25] MEDS ORDERED: GLUCOSE 4GM CHEW TABLET PO PRN (21:40)
[2022-10-25] MEDS ORDERED: DEXTROSE 50% 50ML SYRINGE IV PRN (21:40)
[2022-10-25] MEDS ORDERED: GLUCAGON INJ 1MG VIAL SC PRN (21:40)
[2022-10-25 22:08] VITALS: BP 122/100
[2022-10-25] MEDS: INSULIN LISPRO (NovoLOG) PER UNIT SC SCH (22:30)
[2022-10-25] MEDS: methylPREDNISolone 125MG 2ML VIAL IV SCH (22:43)
[2022-10-25] MEDS: guaiFENesin/CODEINE SYRUP 5 ML UDC PO SCH (22:43)
[2022-10-26] MEDS: guaiFENesin/CODEINE SYRUP 5 ML UDC PO SCH ×6 (01:13→20:45)
[2022-10-26] MEDS: IPRATROPIUM 0.5MG/ALBUTEROL 2.5MG INH SOL UD 3ML (DUONEB) NEB SCH ×4 (01:15→19:29)
[2022-10-26] MEDS: methylPREDNISolone 125MG 2ML VIAL IV SCH (05:58)
[2022-10-26] MEDS: LEVOTHYROXINE 50MCG TABLET (0.05MG) PO SCH (05:58)
[2022-10-26 06:00] VITALS: BP 169/97
[2022-10-26 06:34] LABS: MEAN CORPUSCULAR HGB CONC 34.4 g/dl (32.0-36.5); PLATELET COUNT, AUTOMATED 206 10^3/uL (150-450); RED BLOOD COUNT 4.14 10^6/uL (4.00-5.40); WHITE BLOOD COUNT 7.3 10^3/uL (4.0-10.0)
[2022-10-26 06:35] LABS: HEMOGLOBIN 12.4 g/dl (12.0-15.5)
[2022-10-26 07:04] LABS: ALBUMIN 3.9 G/DL (3.2-5.2); ALKALINE PHOSPHATASE 73 U/L (46-116); ALT/SGPT 44 U/L (7.0-40); AST/SGOT 33 U/L (<34); BILIRUBIN,DIRECT 0.1 MG/DL (<0.4); BILIRUBIN,TOTAL 0.3 MG/DL (0.3-1.2); BLOOD UREA NITROGEN 6 MG/DL (9-23); CALCIUM LEVEL 8.8 MG/DL (8.5-10.1); CARBON DIOXIDE LEVEL 29 MMOL/L (20-31); CHLORIDE LEVEL 100 MMOL/L (98-107); CREATININE FOR GFR 0.63 MG/DL (0.55-1.30); GLOMERULAR FILTRATION RATE > 60.0 (>51); GLUCOSE, FASTING 214 MG/DL (60-100); POTASSIUM SERUM 3.9 MMOL/L (3.5-5.1); SODIUM LEVEL 137 MMOL/L (136-145); TOTAL PROTEIN 6.4 G/DL (5.7-8.2)
[2022-10-26] MEDS: ADVAIR HFA 230/21MCG INHALER INH SCH ×2 (09:09→19:29)
[2022-10-26] MEDS: TIOTROPIUM INHALER/CAPSULE (SPIRIVA) INH SCH (09:09)
[2022-10-26] MEDS: ROSUVASTATIN 10 MG TAB (CRESTOR) PO SCH (09:17)
[2022-10-26] MEDS: FLUoxetine 10 MG CAP PO SCH (09:17)
[2022-10-26] MEDS: LOSARTAN 50MG TABLET PO SCH (09:18)
[2022-10-26] MEDS: INSULIN LISPRO (NovoLOG) PER UNIT SC SCH ×4 (09:18→20:35)
[2022-10-26 14:00] VITALS: BP 133/99
[2022-10-26] MEDS: ACETAMINOPHEN 500 MG TAB PO PRN ×2 (14:35→20:45)
[2022-10-26] MEDS: RIVAROXABAN 10MG TAB (XARELTO) PO SCH (17:47)
[2022-10-26] MEDS: AZITHROMYCIN 250MG TABLET PO SCH (17:47)
[2022-10-26 20:00] VITALS: BP 103/78
[2022-10-26 22:10] VITALS: BP 110/62
[2022-10-27] MEDS: guaiFENesin/CODEINE SYRUP 5 ML UDC PO SCH ×5 (00:50→16:27)
[2022-10-27] MEDS: IPRATROPIUM 0.5MG/ALBUTEROL 2.5MG INH SOL UD 3ML (DUONEB) NEB SCH ×3 (01:10→13:32)
[2022-10-27] MEDS: LEVOTHYROXINE 50MCG TABLET (0.05MG) PO SCH (05:10)
[2022-10-27 06:00] VITALS: BP 127/88
[2022-10-27 06:09] LABS: HEMATOCRIT 36.2 % (36.0-47.0); HEMOGLOBIN 12.4 g/dl (12.0-15.5); MEAN CORPUSCULAR HEMOGLOBIN 30.5 pg (27.0-33.0); MEAN CORPUSCULAR HGB CONC 34.3 g/dl (32.0-36.5); MEAN CORPUSCULAR VOLUME 88.9 fl (80.0-96.0); PLATELET COUNT, AUTOMATED 230 10^3/uL (150-450); RED BLOOD COUNT 4.07 10^6/uL (4.00-5.40); WHITE BLOOD COUNT 11.8 10^3/uL (4.0-10.0)
[2022-10-27 06:55] LABS: ALBUMIN 3.7 G/DL (3.2-5.2); ALKALINE PHOSPHATASE 72 U/L (46-116); ALT/SGPT 40 U/L (7.0-40); AST/SGOT 36 U/L (<34); BILIRUBIN,DIRECT < 0.1 MG/DL (<0.4); BILIRUBIN,TOTAL 0.2 MG/DL (0.3-1.2); BLOOD UREA NITROGEN 9 MG/DL (9-23); CALCIUM LEVEL 8.8 MG/DL (8.5-10.1); CARBON DIOXIDE LEVEL 30 MMOL/L (20-31); CHLORIDE LEVEL 102 MMOL/L (98-107); GLOMERULAR FILTRATION RATE > 60.0 (>51); GLUCOSE, FASTING 147 MG/DL (60-100); POTASSIUM SERUM 4.2 MMOL/L (3.5-5.1); SODIUM LEVEL 139 MMOL/L (136-145); TOTAL PROTEIN 6.1 G/DL (5.7-8.2)
[2022-10-27] MEDS: TIOTROPIUM INHALER/CAPSULE (SPIRIVA) INH SCH (07:39)
[2022-10-27] MEDS: ADVAIR HFA 230/21MCG INHALER INH SCH ×2 (07:39→19:29)
[2022-10-27] MEDS: LOSARTAN 50MG TABLET PO SCH (08:33)
[2022-10-27] MEDS: INSULIN LISPRO (NovoLOG) PER UNIT SC SCH ×4 (08:33→20:23)
[2022-10-27] MEDS: FLUoxetine 10 MG CAP PO SCH (08:34)
[2022-10-27] MEDS: ROSUVASTATIN 10 MG TAB (CRESTOR) PO SCH (08:34)
[2022-10-27] MEDS: predniSONE 10MG TAB PO SCH (08:34)
[2022-10-27] MEDS ORDERED: ISOVUE-370 76% 100ML VIAL As Ordered ONE (10:44)
[2022-10-27] MEDS: DEXTROMETHORPHAN 60MG/10ML SUSP 90ML BTL(DELSYM) PO PRN (11:26)
[2022-10-27] MEDS: SODIUM CHLORIDE NASAL 0.65% SPRAY BTL (OCEAN) PRN (11:27)
[2022-10-27] MEDS: OMEPRAZOLE 20MG CAP PO SCH (11:29)
[2022-10-27] MEDS: ACETAMINOPHEN 500 MG TAB PO PRN ×2 (11:30→20:30)
[2022-10-27 14:00] VITALS: BP 125/95
[2022-10-27] MEDS ORDERED: LR 1,000 ML IV ONE (14:10)
[2022-10-27 14:46] LABS: ABG BASE EXCESS 1.4 (-2.0-2.0); ABG HCO3 26.7 MEQ/L (22.0-26.0); ABG O2 SATURATION 98.8 % (95.0-99.0); ABG PARTIAL PRESSURE CO2 44.7 mmHg (35.0-45.0); ABG PARTIAL PRESSURE O2 133.3 mmHg (75.0-100.0); ABG STANDARD HCO3 25.7 MEQ/L (22.0-26.0); ABG TOTAL CO2 28.1 MEQ/L (22.0-29.0); ABG pH (ARTERIAL) 7.394 UNITS (7.350-7.450)
[2022-10-27] MEDS: RIVAROXABAN 10MG TAB (XARELTO) PO SCH (17:36)
[2022-10-27] MEDS: AZITHROMYCIN 250MG TABLET PO SCH (17:36)
[2022-10-27] MEDS: IPRATROPIUM 0.02% SOLN 0.5MG 2.5ML NEB NEB SCH (19:29)
[2022-10-27 20:00] VITALS: BP 170/82
[2022-10-27] MEDS ORDERED: LEVALBUTEROL 1.25MG 0.5ML CONCENTRATE NEB NEB SCH (20:00)
[2022-10-27] MEDS ORDERED: amLODIPine 5 MG TAB PO ONE (21:10)
[2022-10-28] MEDS: DEXTROMETHORPHAN 60MG/10ML SUSP 90ML BTL(DELSYM) PO PRN (00:04)
[2022-10-28 00:51] VITALS: O2SAT 92
[2022-10-28] MEDS: ALBUTEROL SULFATE 2.5MG/0.5ML INH NEB SOLN NEB SCH ×3 (01:20→13:30)
[2022-10-28] MEDS: IPRATROPIUM 0.02% SOLN 0.5MG 2.5ML NEB NEB SCH ×5 (01:20→23:46)
[2022-10-28] MEDS: guaiFENesin/CODEINE SYRUP 5 ML UDC PO PRN ×2 (04:15→13:25)
[2022-10-28] MEDS ORDERED: guaiFENesin ER 600 MG TAB PO ONE (04:40)
[2022-10-28] MEDS: LEVOTHYROXINE 50MCG TABLET (0.05MG) PO SCH (05:31)
[2022-10-28] MEDS: ACETAMINOPHEN 500 MG TAB PO PRN ×2 (05:31→20:58)
[2022-10-28 06:00] VITALS: BP 156/89
[2022-10-28 06:41] LABS: HEMATOCRIT 36.1 % (36.0-47.0); HEMOGLOBIN 12.2 g/dl (12.0-15.5); MEAN CORPUSCULAR HEMOGLOBIN 29.7 pg (27.0-33.0); MEAN CORPUSCULAR HGB CONC 33.8 g/dl (32.0-36.5); MEAN CORPUSCULAR VOLUME 87.8 fl (80.0-96.0); PLATELET COUNT, AUTOMATED 228 10^3/uL (150-450); RED BLOOD COUNT 4.11 10^6/uL (4.00-5.40); WHITE BLOOD COUNT 9.4 10^3/uL (4.0-10.0)
[2022-10-28 06:56] LABS: ALBUMIN 3.7 G/DL (3.2-5.2); ALKALINE PHOSPHATASE 66 U/L (46-116); ALT/SGPT 40 U/L (7.0-40); AST/SGOT 27 U/L (<34); BILIRUBIN,DIRECT 0.1 MG/DL (<0.4); BILIRUBIN,TOTAL 0.3 MG/DL (0.3-1.2); BLOOD UREA NITROGEN 8 MG/DL (9-23); CALCIUM LEVEL 8.8 MG/DL (8.5-10.1); CARBON DIOXIDE LEVEL 33 MMOL/L (20-31); CHLORIDE LEVEL 102 MMOL/L (98-107); GLOMERULAR FILTRATION RATE > 60.0 (>51); GLUCOSE, FASTING 109 MG/DL (60-100); POTASSIUM SERUM 3.7 MMOL/L (3.5-5.1); SODIUM LEVEL 141 MMOL/L (136-145)
[2022-10-28] MEDS: TIOTROPIUM INHALER/CAPSULE (SPIRIVA) INH SCH (07:50)
[2022-10-28] MEDS: ADVAIR HFA 230/21MCG INHALER INH SCH ×2 (07:51→19:38)
[2022-10-28] MEDS: INSULIN LISPRO (NovoLOG) PER UNIT SC SCH ×4 (08:24→20:59)
[2022-10-28] MEDS: FLUoxetine 10 MG CAP PO SCH (09:34)
[2022-10-28] MEDS: OMEPRAZOLE 20MG CAP PO SCH (09:34)
[2022-10-28] MEDS: predniSONE 10MG TAB PO SCH (09:34)
[2022-10-28] MEDS: LOSARTAN 50MG TABLET PO SCH (09:35)
[2022-10-28] MEDS: ROSUVASTATIN 10 MG TAB (CRESTOR) PO SCH (09:35)
[2022-10-28] MEDS ORDERED: LIDOCAINE VISCOUS 2% SOLN 15ML UDC SSP PRN (11:10)
[2022-10-28] MEDS ORDERED: DEXTROMETHORPHAN 60MG/10ML SUSP 90ML BTL(DELSYM) PO PRN (11:35)
[2022-10-28 12:43] VITALS: O2SAT 95
[2022-10-28] MEDS: BENZONATATE 100MG CAPSULE PO SCH ×2 (13:25→21:00)
[2022-10-28] MEDS: SODIUM CHLORIDE NASAL 0.65% SPRAY BTL (OCEAN) PRN (13:38)
[2022-10-28] MEDS: FLUTICASONE PROP 0.05% NASAL SPRAY 16 GM (FLONASE) NARES SCH ×2 (13:51→20:59)
[2022-10-28 14:00] VITALS: BP 143/92
[2022-10-28] MEDS: RIVAROXABAN 10MG TAB (XARELTO) PO SCH (18:12)
[2022-10-28] MEDS: LEVALBUTEROL 1.25MG 0.5ML CONCENTRATE NEB NEB SCH ×2 (19:38→23:46)
[2022-10-28 20:55] VITALS: BP 152/78
[2022-10-28] MEDS: guaiFENesin ER 600 MG TAB PO SCH (20:58)
[2022-10-28 22:20] VITALS: O2SAT 96
[2022-10-29] MEDS: guaiFENesin/CODEINE SYRUP 5 ML UDC PO PRN (02:25)
[2022-10-29] MEDS: IPRATROPIUM 0.02% SOLN 0.5MG 2.5ML NEB NEB SCH ×3 (04:30→11:12)
[2022-10-29] MEDS: LEVALBUTEROL 1.25MG 0.5ML CONCENTRATE NEB NEB SCH ×3 (04:30→11:12)
[2022-10-29 05:20] VITALS: BP 177/92
[2022-10-29] MEDS: BENZONATATE 100MG CAPSULE PO SCH (05:34)
[2022-10-29] MEDS: LEVOTHYROXINE 50MCG TABLET (0.05MG) PO SCH (05:34)
[2022-10-29 05:55] LABS: HEMATOCRIT 34.6 % (36.0-47.0); HEMOGLOBIN 11.8 g/dl (12.0-15.5); MEAN CORPUSCULAR HEMOGLOBIN 29.6 pg (27.0-33.0); MEAN CORPUSCULAR HGB CONC 34.1 g/dl (32.0-36.5); MEAN CORPUSCULAR VOLUME 86.7 fl (80.0-96.0); PLATELET COUNT, AUTOMATED 204 10^3/uL (150-450); RED BLOOD COUNT 3.99 10^6/uL (4.00-5.40); WHITE BLOOD COUNT 8.6 10^3/uL (4.0-10.0)
[2022-10-29 06:21] LABS: ALBUMIN 3.5 G/DL (3.2-5.2); ALKALINE PHOSPHATASE 59 U/L (46-116); ALT/SGPT 35 U/L (7.0-40); AST/SGOT 25 U/L (<34); BILIRUBIN,DIRECT 0.1 MG/DL (<0.4); BILIRUBIN,TOTAL 0.3 MG/DL (0.3-1.2); BLOOD UREA NITROGEN 6 MG/DL (9-23); CALCIUM LEVEL 8.3 MG/DL (8.5-10.1); CARBON DIOXIDE LEVEL 33 MMOL/L (20-31); CHLORIDE LEVEL 97 MMOL/L (98-107); CREATININE FOR GFR 0.63 MG/DL (0.55-1.30); GLOMERULAR FILTRATION RATE > 60.0 (>51); GLUCOSE, FASTING 139 MG/DL (60-100); POTASSIUM SERUM 3.3 MMOL/L (3.5-5.1); SODIUM LEVEL 134 MMOL/L (136-145); TOTAL PROTEIN 6.1 G/DL (5.7-8.2)
[2022-10-29 06:29] VITALS: BP 146/86
[2022-10-29] MEDS: ADVAIR HFA 230/21MCG INHALER INH SCH (07:57)
[2022-10-29] MEDS: TIOTROPIUM INHALER/CAPSULE (SPIRIVA) INH SCH (07:57)
[2022-10-29] MEDS: INSULIN LISPRO (NovoLOG) PER UNIT SC SCH (08:53)
[2022-10-29] MEDS: POTASSIUM CHLORIDE 10MEQ SR TABLET PO SCH ×2 (08:53→11:56)
[2022-10-29 08:54] VITALS: BP 130/78
[2022-10-29] MEDS: OMEPRAZOLE 20MG CAP PO SCH (08:54)
[2022-10-29] MEDS: predniSONE 10MG TAB PO SCH (08:54)
[2022-10-29] MEDS: ROSUVASTATIN 10 MG TAB (CRESTOR) PO SCH (08:54)
[2022-10-29] MEDS: FLUoxetine 10 MG CAP PO SCH (08:54)
[2022-10-29] MEDS: LOSARTAN 50MG TABLET PO SCH (08:54)
[2022-10-29] MEDS: guaiFENesin ER 600 MG TAB PO SCH (08:54)
[2022-10-29] MEDS: FLUTICASONE PROP 0.05% NASAL SPRAY 16 GM (FLONASE) NARES SCH (08:55)
[2022-10-29] MEDS ORDERED: OMEP-173 PO (09:55)
[2022-10-29] MEDS ORDERED: GUAI1SOL7 PO (09:55)
[2022-10-29] MEDS ORDERED: HYDR-3363 PO (09:55)
[2022-10-29] MEDS ORDERED: BENZ-18 PO (09:55)
[2022-10-29] MEDS ORDERED: Sodium Chloride Nasal Spray (09:55)
[2022-10-29] MEDS ORDERED: FLUT50SP17 NARES (09:55)
[2022-10-29] MEDS ORDERED: PRED10TA2 PO (09:55)
[2022-10-29] MEDS ORDERED: LIDO15SO SSP (09:55)
[2022-10-29] MEDS ORDERED: DELS30LI8 PO (09:55)
[2022-10-29] MEDS ORDERED: IPRA0.00 INH (10:00)
[2022-10-29] MEDS ORDERED: AZIT-12 PO (10:00)
[2022-10-29 11:07] VITALS: O2SAT 92
[2022-10-29] MEDS ORDERED: POTASSIUM CHLORIDE 10MEQ SR TABLET PO SCH (11:55)
== END 2022-10-29 12:47 | disposition home health service (06) | DRG 191 ==
LOC: M ED 14:19 → OBSVTOIN 16:56 → M ED INP 16:56 → ENRESERV 21:25 → M MSPAV 22:08
PROVIDERS: ADMIT Student in an Organized Health Care Education/Training Program; ATTEND Student in an Organized Health Care Education/Training Program
DX: J44.1 Chronic obstructive pulmonary disease with (acute) exacerbation (principal); J96.11 Chronic respiratory failure with hypoxia; J96.12 Chronic respiratory failure with hypercapnia; B34.2 Coronavirus infection, unspecified; I10 Essential (primary) hypertension; E78.5 Hyperlipidemia, unspecified; F32.A Depression, unspecified; F41.9 Anxiety disorder, unspecified; E11.9 Type 2 diabetes mellitus without complications; Z66 Do not resuscitate; D73.4 Cyst of spleen; E03.9 Hypothyroidism, unspecified; K75.81 Nonalcoholic steatohepatitis (NASH); Z99.81 Dependence on supplemental oxygen; Z87.891 Personal history of nicotine dependence; R00.0 Tachycardia, unspecified; Z79.890 Hormone replacement therapy; Z79.899 Other long term (current) drug therapy; Z88.0 Allergy status to penicillin

== ENCOUNTER → 2023-01-30 | Outpatient (CLI) | payer OTHER, MEDICAID ==
[~2023-01-30] MED LIST changes: +ADVA230A INH; +ALBU8.5H INH; +AZIT-12 PO; +BENZ-18 PO; +DELS30LI8 PO; +FLUT50SP17 NARES; +GUAI1SOL7 PO; +HYDR-3363 PO; +IBAN150T6 PO; +IPRA0.00 INH; +LIDO15SO SSP; -LOSA100T45 PO; +LOSA100T46 PO; +NYST-38 SS; +OMEP-173 PO; +Sodium Chloride Nasal Spray
== END ==
LOC: M WHC 16:28
PROVIDERS: ATTEND Nurse Practitioner Adult Health
DX: Z12.31 Encounter for screening mammogram for malignant neoplasm of breast (principal)

== ENCOUNTER → 2023-08-16 | Outpatient (REF) | payer OTHER, MEDICAID ==
[~2023-08-16] MED LIST changes: -FLUT50SP17 NARES; +FLUTISP NARES
== END ==
LOC: M LAB REF 11:25
PROVIDERS: ATTEND Internal Medicine Pulmonary Disease
DX: J44.9 Chronic obstructive pulmonary disease, unspecified (principal)